=== PATIENT | male | born 2000 | race Caucasian/White ===

== ENCOUNTER 2023-07-13 17:17 | Emergency (ER) | payer BC, SELFPAY ==
[2023-07-13 17:19] VITALS: BP 146/97; BMI 32.8
--- NOTE | 2023-07-13 18:24 | ED.GENMED ---
History of Present Illness
General
Chief Complaint: Headache
Source: patient
Exam Limitations: none
Time Seen by Provider: 07/13/23 17:56
Travel History
Have you had any contact with someone who has COVID-19?: No
Do you have any symptoms of coronavirus? Fever > 100 degrees, chills, cough, shortness of breath, sore throat, loss of taste or smell, muscle aches, or headache?: No
History of Present Illness
History of Present Illness:
This is a 23 year old male that comes in with c/o Migraine. states that he has chronic migraines since he was 2 years old. State that in 2014 he started with Botox and this worked at first but is not working any more. States that he has a headache
20 days out of every month. States that he has been to [facility], [facility] and [facility]. states that [facility] wants him to go in patient to there clinic in October. States that he has taken all his migraine medication and nothing is helping. States that this
is just like his normal migraine pattern. States that his pain in ehind his eyes and all over his head. States that he gets some right sided neck pain. States that he has had nausea and vomiting. States that he also feels fozzy and gets Z lines.
Denies any fever, chills, chest pain, SOB, abd pain, diarrhea, urinary burning.
Past History
Past History
ED Past Medical History: HTN and Other (Migraines, Crohn's, Wernickie's Encephalopathy. Psoriasis)
ED Past Surgical History: None
Social History
Tobacco: Non-smoker
Alcohol: None
Drug: None
Personal: Single
Living: with family
Review of Systems
Review of Systems
All Other Systems: ROS reviewed and negative except as documented in HPI and ROS
Constitutional: Reports no symptoms; Denies fever or chills
EENT: Reports no symptoms
Respiratory: Reports no symptoms; Denies cough or trouble breathing
Cardiac: Reports no symptoms; Denies chest pain
ABD/GI: Reports nausea and vomiting; Denies abdominal pain or diarrhea
: Reports no symptoms
Musculoskeletal: Reports no symptoms
Skin: Reports no symptoms
Neurological: Reports headache and other (Feels fozzy)
Psychiatric: Reports no symptoms
Phy Exam
General Physical Exam
General Presentation: well appearing and no apparent distress
General age: appears stated age
General Skin: warm and dry
General Habitus: normal
General Mental: alert
General Hydration: appears well hydrated
ENT Exam
ENT Exam: TM's normal, pharynx normal and neck supple
Eye Exam
Eye Exam: EOMI
Cardiovascular Exam
Cardiovascular Exam: regular rate/rhythm, no edema, no murmur and normal peripheral pulses
Pulmonary Exam
Pulmonary Exam: lungs clear, no respiratory distress, no rales, chest non tender, no crackles, no rhonchi, no wheezing and no cough
Gastrointestinal Exam
Gastrointestinal Exam: normal bowel sounds, non tender, soft, no organomegaly, no pulsatile mass and non distended
Musculoskeletal Exam
Musculoskeletal Exam: full ROM and no edema
Skin Exam
Skin Exam: normal color, warm/dry, no rash and no petechia
Course
Orders/Labs/Results
Orders:
Orders
07/13/23 18:22
0.9% Sodium Chloride 500 ml [Nss] 500 ml IV BOLUS
Acetaminophen [Tylenol] 1,000 mg PO NOW STA
Dexamethasone Sod Phosphate [Decadron] 20 mg IV NOW STA
Diphenhydramine [Benadryl] 25 mg IV NOW STA
Ketorolac [Toradol] 30 mg IV NOW STA
Prochlorperazine [Compazine] 5 mg IV NOW STA
07/13/23 18:38
Complete Blood Count/With Diff Urgent
Comprehensive Metabolic Panel Urgent
Abnormal Lab Results
07/13/23
18:38
ALT 63 H U/L
(0-50)
07/13/23 18:38
07/13/23 18:38
ALT slightly elevated. Otherwise normal labs.
Vital Signs
Initial and Last Documented VS:
Initial Vital Signs
Temp Pulse Resp BP Pulse Ox
98 F 87 16 146/97 97
07/13/23 17:19 07/13/23 17:19 07/13/23 17:19 07/13/23 17:19 07/13/23 17:19
Last Documented Vital Signs
Temp Pulse Resp BP Pulse Ox
98 F 87 16 146/97 97
07/13/23 17:19 07/13/23 17:19 07/13/23 17:19 07/13/23 17:19 07/13/23 17:19
MDM/Problems Addressed
Differential Diagnosis Includes:
Chronic Migraine
MDM/Problems Addressed:
This is a 23 year old male that comes in with c/o a migraine. States that he just can't his migraine to go away. States that he has used all his Migraine medication and nothing is working. patient is to go Inpatient at [facility] in October.
Will check labs and medicate.
Back into see patient. Patient states that he is feeling better and ready to go home. Explained to patient that he can use Tylenol 1000mg every 6 hours for headache pain and alternate with Ibuprofen 600mg every 6 hours with food. Patient to return
with any concerns.
Chronic conditions affecting care:
Chronic Migraine
Acute Exacerbation and/or Progression of Chronic Illness:
Chronic migraine
*Pulse Oximetry
Patient hypoxic: no
*EKG
Interpreted by ED Provider?: NA
Rate: EKG- N/A
*Hat Band Attacher Interpretation
Rate: Hat Band Attacher- N/A
*Critical Care Note
Total Time (30-74mins, 75-104mins- exclusive of procedures): Not Applicable
ED Attending Note
-
Portions of this chart may have been created with voice recognition software.� Occasional wrong word or��sound alike� substitutions may have occurred due to the inherent limitations of voice recognition software.
Discharge Plan
Departure
Patient Disposition: Home (Routine Discharge)
Date of Disposition: 07/13/23
Time of Disposition: 20:11
Patient with high blood pressure during this ER visit?: Yes
Condition: Good
Covid-19: Not Applicable
Discharge Problem:
Migraine
Instructions: Migraines (DC), BLOOD PRESSURE
Prescriptions:
No Action
multivitamin [TAB A DAYO] Tablet
1 tab PO DAILY
clonazepam 0.5 mg Tablet
0.5 mg PO DAILY PRN (Reason: headache)
Patient Comments:
08/08/2022: last filled 07/08/22, 30 tabs for 30 days from [facility]#[id number]
Remicade
1 dose IV .Q7WEEK
prochlorperazine maleate 10 MG tablet
10 mg PO Q8HPRN PRN (Reason: headache) Qty: 20 0RF
metoprolol succinate 50 mg Tablet Extended Release 24 Hr
50 mg PO DAILY
venlafaxine [Effexor XR] 150 mg Capsule,Extended Release 24hr
300 mg PO HS
metoprolol succinate 25 mg Tablet Extended Release 24 Hr
25 mg PO HS
candesartan 8 mg Tablet
8 mg PO HS
Ubrelvy 100 mg Tablet
100 mg PO ONCE PRN (Reason: migraines)
Trudhesa 0.725 mg/pump act. (4 mg/mL) [place],Non-Aerosol
1 spray INTRANASAL ONCE
omeprazole 40 mg Capsule,Delayed Release(Dr/Ec)
40 mg PO DAILY
divalproex 250 mg tablet extended release 24 hr
250 mg PO HS
Referrals:
Alexander Pacheco MD [Family Provider] - Call in 1-3 days for appt
Activity Restrictions/Additional Instructions:
As discussed, please make sure you are drinking your 8-8oz glasses daily. Your blood work is normal. You may use Tylenol 1000mg every 6 hours for pain and Ibuprofen 600mg every 6 hours with food. So if you take Tylenol at 9am, the Ibuprofen is due
at 12 noon, and then the Tylenol can then be taken again at 3pm and ibuprofen at 6pm. Follow up with the [facility] for your headache as scheduled. IF YOU HAVE ANY OTHER CONCERNS PLEASE RETURN TO THE EMERGENCY ROOM.
Interventions
Interventions:
*Risk Screen - Suicide Last Done: 07/13/23 17:19
*Neglect/Abuse Screening Last Done: 07/13/23 17:19
*ED COVID-19 Vaccine History Last Done: 07/13/23 17:19
ED- Neurological Assessment Last Done: 07/13/23 17:42
[2023-07-13] MEDS: DECADRON 20 MG IV (18:40)
[2023-07-13] MEDS: TYLENOL 1000 MG PO (18:40)
[2023-07-13] MEDS: BENADRYL 25 MG IV (18:40)
[2023-07-13] MEDS: COMPAZINE 5 MG IV (18:40)
[2023-07-13] MEDS: NSS 500 IV (18:41)
[2023-07-13] MEDS: TORADOL 30 MG IV (18:41)
[2023-07-13 18:56] LABS: % Basophils 1.1 % (0-2); % Eosinophils 0.6 % (0-6); % Immature Granulocytes 0.2 % (0-0.5); % Lymphocytes 36.9 % (20.5-51.1); % Monocytes 6.8 % (1.7-9.3); % Neutrophils 54.4 % (42.2-75.2); Absolute Basophils 0.1 10^3/uL (0-0.2); Absolute Lymphocytes 2.3 10^3/uL (1.2-3.4); Absolute Monocytes 0.4 10^3/uL (0.1-0.6); Absolute Neutrophils 3.4 10^3/uL (1.4-6.5); Hematocrit 41.5 % (39.0-52.0); Hemoglobin 14.5 g/dL (13.0-18.0); Mean Corp Hgb Conc. 34.9 g/dL (33.0-37.0); Mean Platelet Volume 9.5 fL (7.4-10.4); Nucleated Red Blood Cells % 0 % (-); Platelet Count 318 10^3/uL (130-400); Red Cell Dist. Width 13.1 % (11.5-14.5); White Blood Cell Count 6.3 10^3/uL (4.8-10.8)
[2023-07-13 19:13] LABS: ALT (SGPT) 63 U/L (0-50); AST (SGOT) 25 U/L (17-59); Alkaline Phosphatase 51 U/L (38-126); Blood Urea Nitrogen 16 mg/dl (9-20); Carbon Dioxide 24 mmol/L (22-30); Chloride 98 mmol/L (98-107); Estimated Creatinine Clearance > 125 ml/min; Glucose 76 mg/dl (70-99); Potassium 4.3 mmol/L (3.5-5.1); Sodium 137 mmol/L (135-145); Total Bilirubin 0.7 mg/dl (0.2-1.3); Total Protein 7.9 g/dl (6.3-8.2); eGFR > 60.00
[2023-07-13 20:30] VITALS: BP 138/80
== END 2023-07-13 20:33 | disposition home or self-care (01) ==
LOC: EMR 17:17
PROVIDERS: Clinical Nurse Specialist Family Health; EMERGENCY PHYSICIAN Emergency Medicine; FAMILY PHYSICIAN Pediatrics
DX: G43.909 Migraine, unspecified, not intractable, without status migrainosus (principal); I10 Essential (primary) hypertension
CPT/HCPCS: 99284; 96374; 96375 ×3; 96361 ×2; 80053; 85025

== ENCOUNTER 2023-07-17 15:56 | Emergency (ER) | payer BC, SELFPAY ==
[2023-07-17 16:00] VITALS: BP 175/99
[2023-07-17] MEDS: TYLENOL 1000 MG PO (17:06)
[2023-07-17] MEDS: ATIVAN 0.5 MG IV (17:07)
[2023-07-17] MEDS: BENADRYL 50 MG IV (17:09)
[2023-07-17] MEDS: NSS 1000 IV (17:10)
[2023-07-17] MEDS: REGLAN 10 MG IV (17:11)
[2023-07-17] MEDS: TORADOL 30 MG IV (17:15)
[2023-07-17] MEDS: DECADRON 10 MG IV (17:21)
[2023-07-17 17:24] LABS: % Eosinophils 0.5 % (0-6); % Monocytes 8.7 % (1.7-9.3); % Neutrophils 54.8 % (42.2-75.2); Absolute Basophils 0.1 10^3/uL (0-0.2); Absolute Monocytes 0.5 10^3/uL (0.1-0.6); Absolute Neutrophils 3.1 10^3/uL (1.4-6.5); Hematocrit 45.5 % (39.0-52.0); Hemoglobin 15.7 g/dL (13.0-18.0); Mean Corp Hgb Conc. 34.5 g/dL (33.0-37.0); Mean Corpuscular Hgb 29.1 pg (27.0-31.0); Mean Corpuscular Volume 84.4 fL (80.0-94.0); Mean Platelet Volume 9.9 fL (7.4-10.4); Nucleated Red Blood Cells % 0 % (-); Platelet Count 337 10^3/uL (130-400); Red Blood Cell Count 5.39 10^6/uL (4.70-6.10); Red Cell Dist. Width 13.2 % (11.5-14.5); White Blood Cell Count 5.7 10^3/uL (4.8-10.8)
[2023-07-17 17:41] LABS: ALT (SGPT) 40 U/L (0-50); AST (SGOT) 24 U/L (17-59); Albumin 5.1 g/dl (3.5-5.0); Alkaline Phosphatase 47 U/L (38-126); Blood Urea Nitrogen 14 mg/dl (9-20); Calcium 10.4 mg/dl (8.4-10.2); Carbon Dioxide 30 mmol/L (22-30); Chloride 99 mmol/L (98-107); Glucose 85 mg/dl (70-99); Potassium 4.4 mmol/L (3.5-5.1); Sodium 139 mmol/L (135-145); Total Bilirubin 0.7 mg/dl (0.2-1.3); Total Protein 8.3 g/dl (6.3-8.2); eGFR > 60.00
[2023-07-17] MEDS: DILAUDID 0.5 MG IV (19:27)
--- NOTE | 2023-07-17 20:17 | ED.GENMED ---
History of Present Illness
General
Chief Complaint: Headache
Source: patient
Exam Limitations: none
Time Seen by Provider: 07/17/23 16:39
Nursing documentation reviewed up to this point in time: agreed with
Travel History
Have you had any contact with someone who has COVID-19?: No
Do you have any symptoms of coronavirus? Fever > 100 degrees, chills, cough, shortness of breath, sore throat, loss of taste or smell, muscle aches, or headache?: No
History of Present Illness
History of Present Illness:
23-year-old male with past medical history of migraines, psoriasis presenting to the emergency department today with concerns of recurrent headache has been here recently multiple times and does follow very closely with neurology and has multiple
follow-up scheduled in the next couple weeks. Otherwise he denies any new or changing symptoms but has had a tough to treat migraine over the past few days. Has been taking his home meds diligently.
Past History
Past History
ED Past Medical History: HTN and Other (Migraines, Crohn's, Wernickie's Encephalopathy. Psoriasis)
ED Past Surgical History: None
Social History
Tobacco: Non-smoker
Alcohol: None
Drug: None
Personal: Single
Living: with family
Review of Systems
Review of Systems
Allergies reviewed?: Yes
All Other Systems: ROS reviewed and negative except as documented in HPI and ROS
Phy Exam
Physical Exam
Physical Exam:
GENERAL: Alert , in no apparent distress
EYE: pupils equal and reactive
NECK: Supple, no significant adenopathy.
ENT: o/p clr, mmm.
CARDIAC: Regular rate and rhythm .
LUNGS: Clear breath sounds bilaterally, no acute respiratory distress, no wheezes/rales/rhonchi
ABDOMEN: Soft, without focal tenderness, no r/g, no cvat
NEUROLOGICAL: Alert and oriented, no focal neuro deficits 5 out of 5 upper and lower extremity strength normal sensation were palpated bilaterally normal finger-nose and [id number] no pronator drift
SKIN: Warm and dry, skin intact.
MUSCULOSKELETAL: No edema, well perfused.
PSYCH: Normal and appropriate interaction.
Course
Orders/Labs/Results
Orders:
Orders
07/17/23 16:49
0.9% Sodium Chloride 1000 ml [Nss] 1,000 ml IV BOLUS
Acetaminophen [Tylenol] 1,000 mg PO NOW STA
Diphenhydramine [Benadryl] 50 mg IV NOW STA
Ketorolac [Toradol] 30 mg IV NOW STA
Lorazepam [Ativan] 0.5 mg IV NOW STA
Metoclopramide [Reglan] 10 mg IV NOW STA
07/17/23 17:04
Complete Blood Count/With Diff Urgent
Comprehensive Metabolic Panel Urgent
07/17/23 17:18
Dexamethasone Sod Phosphate [Decadron] 10 mg IV NOW STA
07/17/23 19:24
HYDROmorphone [Dilaudid] 0.5 mg IV NOW STA
Abnormal Lab Results
07/17/23
17:04
Calcium 10.4 H mg/dl
(8.4-10.2)
Total Protein 8.3 H g/dl
(6.3-8.2)
Albumin 5.1 H g/dl
(3.5-5.0)
07/17/23 17:04
07/17/23 17:04
Vital Signs
Initial and Last Documented VS:
Initial Vital Signs
Temp Pulse Resp BP Pulse Ox
98.7 F 80 18 175/99 98
07/17/23 16:00 07/17/23 16:00 07/17/23 16:00 07/17/23 16:00 07/17/23 16:00
Last Documented Vital Signs
Temp Pulse Resp BP Pulse Ox
98.7 F 80 18 175/99 98
07/17/23 16:00 07/17/23 16:00 07/17/23 16:00 07/17/23 16:00 07/17/23 16:00
MDM/Problems Addressed
MDM/Problems Addressed:
23-year-old male presenting to the emergency department today with concerns of ongoing migraine. Had some relief a few days ago when he came to the ER but has recurred. Has been in close contact with his neurologist at [facility] for IV
medications. He was given a migraine cocktail here with moderate improvement of symptoms given additional dose of Dilaudid as well with further improvement. Patient will tolerate by mouth no obvious distress. Patient follow-up closely with
neurologist return precautions given.
*Critical Care Note
Total Time (30-74mins, 75-104mins- exclusive of procedures): Not Applicable
ED Attending Note
-
Portions of this chart may have been created with voice recognition software.� Occasional wrong word or��sound alike� substitutions may have occurred due to the inherent limitations of voice recognition software.
Discharge Plan
Departure
Patient Disposition: Home (Routine Discharge)
Date of Disposition: 07/17/23
Time of Disposition: 20:21
Patient with high blood pressure during this ER visit?: No
Condition: Good
Covid-19: Not Applicable
Discharge Problem:
Migraine
Instructions: Migraines (DC)
Prescriptions:
New
metoclopramide HCl [Reglan] 10 mg tablet
10 mg PO Q6H PRN (Reason: nausea and vomiting) Qty: 7 0RF
No Action
multivitamin [TAB A DAYO] Tablet
1 tab PO DAILY
clonazepam 0.5 mg Tablet
0.5 mg PO DAILY PRN (Reason: headache)
Patient Comments:
08/08/2022: last filled 07/08/22, 30 tabs for 30 days from [id number]
Remicade
1 dose IV .Q7WEEK
prochlorperazine maleate 10 MG tablet
10 mg PO Q8HPRN PRN (Reason: headache) Qty: 20 0RF
metoprolol succinate 50 mg Tablet Extended Release 24 Hr
50 mg PO DAILY
venlafaxine [Effexor XR] 150 mg Capsule,Extended Release 24hr
300 mg PO HS
metoprolol succinate 25 mg Tablet Extended Release 24 Hr
25 mg PO HS
candesartan 8 mg Tablet
8 mg PO HS
Ubrelvy 100 mg Tablet
100 mg PO ONCE PRN (Reason: migraines)
Trudhesa 0.725 mg/pump act. (4 mg/mL) [place],Non-Aerosol
1 spray INTRANASAL ONCE
omeprazole 40 mg Capsule,Delayed Release(Dr/Ec)
40 mg PO DAILY
divalproex 250 mg tablet extended release 24 hr
250 mg PO HS
Referrals:
Alexander Pacheco III, DO [Family Provider] -
Activity Restrictions/Additional Instructions:
You came to the emergency department today with concerns of migraine. Here you had improved symptoms with the medications you were given. Please feel close with your neurologist return to the emergency department any worsening, new or concerning
symptoms.
Interventions
Interventions:
*Risk Screen - Suicide Last Done: 07/17/23 16:00
*General Assessment Last Done: 07/17/23 16:00
*Neglect/Abuse Screening Last Done: 07/17/23 16:00
*ED COVID-19 Vaccine History Last Done: 07/17/23 16:57
[2023-07-17 20:31] VITALS: BP 148/91
== END 2023-07-17 20:42 | disposition home or self-care (01) ==
LOC: EMR 15:56
PROVIDERS: Physician Assistant; EMERGENCY PHYSICIAN Emergency Medicine; FAMILY PHYSICIAN Student in an Organized Health Care Education/Training Program
DX: G43.909 Migraine, unspecified, not intractable, without status migrainosus (principal)
CPT/HCPCS: 99284; 96374; 96375 ×5; 96361; 80053; 85025

== ENCOUNTER 2023-07-22 11:14 | Emergency (ER) | payer BC, SELFPAY ==
[2023-07-22 11:16] VITALS: BP 137/96
--- NOTE | 2023-07-22 12:06 | ED.GENMED ---
History of Present Illness
General
Chief Complaint: Headache
Source: patient
Exam Limitations: none
Time Seen by Provider: 07/22/23 11:39
Travel History
Have you had any contact with someone who has COVID-19?: No
Do you have any symptoms of coronavirus? Fever > 100 degrees, chills, cough, shortness of breath, sore throat, loss of taste or smell, muscle aches, or headache?: No
History of Present Illness
History of Present Illness:
23-year-old male with recurring migraine headaches. Gets these on a daily basis. Has been worse more recently. No neurologic symptoms no unusual symptoms. Describes this as a typical migraine. Is scheduled for inpatient management in mid July.
Past History
Past History
ED Past Medical History: HTN and Other (Migraines, Crohn's, Wernickie's Encephalopathy. Psoriasis)
ED Past Surgical History: None
Social History
Tobacco: Non-smoker
Alcohol: None
Drug: None
Personal: Single
Living: with family
Review of Systems
Review of Systems
All Other Systems: Not applicable
Constitutional: Reports fever
Respiratory: Reports no symptoms
Cardiac: Reports no symptoms
Phy Exam
Physical Exam
Physical Exam:
GENERAL: Alert and oriented in no apparent distress. Sitting up in the bed nontoxic
EYE: Orbits normal. Extraocular muscles intact
NECK: Supple, nontender
CARDIAC: Regular rate and rhythm without any obvious murmurs.
LUNGS: Clear breath sounds,normal
ABDOMEN: Soft, without focal tenderness or distention
NEUROLOGICAL: Alert and oriented , grossly non-focal. Speech normal. Cranial nerves II through XII intact.
SKIN: Warm and dry, no rash or lesion, no discoloration, skin intact.
MUSCULOSKELETAL: No edema,no deformity.Good color
PSYCH: Normal and appropriate interaction.
Course
Orders/Labs/Results
Orders:
Orders
07/22/23 11:59
IV Insert/Care/Rem.- Treatment PRN
0.9% Sodium Chloride 1000 ml [Nss] 1,000 ml IV BOLUS
Diphenhydramine [Benadryl] 25 mg IV NOW STA
Ketorolac [Toradol] 15 mg IV NOW STA
Prochlorperazine [Compazine] 10 mg IV NOW STA
Vital Signs
Initial and Last Documented VS:
Initial Vital Signs
Temp Pulse Resp BP Pulse Ox
98 F 81 16 137/96 98
07/22/23 11:16 07/22/23 11:16 07/22/23 11:16 07/22/23 11:16 07/22/23 11:16
Last Documented Vital Signs
Temp Pulse Resp BP Pulse Ox
98 F 95 18 140/96 97
07/22/23 11:16 07/22/23 13:53 07/22/23 13:53 07/22/23 13:53 07/22/23 13:53
MDM/Problems Addressed
Differential Diagnosis Includes:
Typical migraine for this patient he is very nontoxic appearing benign neurologic exam. No indication for radiologic testing. Symptomatic treatment follow-up. I did explain to him that we clearly would not resolve his ongoing migraine issues but
this needs to be followed up with his special. He is fully understanding of this
*Critical Care Note
Total Time (30-74mins, 75-104mins- exclusive of procedures): Not Applicable
Data Reviewed
Review of Other/Old Records Reveals: Labs, Records and Testing
Update Note
Update Note:
1330 feels much better. Discharged to follow-up...
ED Attending Note
-
Portions of this chart may have been created with voice recognition software.� Occasional wrong word or��sound alike� substitutions may have occurred due to the inherent limitations of voice recognition software.
Discharge Plan
Departure
Patient Disposition: Home (Routine Discharge)
Date of Disposition: 07/22/23
Time of Disposition: 13:31
Patient with high blood pressure during this ER visit?: Yes
Discharge Problem:
Recurring migraine headache
Instructions: Migraines (DC), BLOOD PRESSURE
Prescriptions:
No Action
multivitamin [TAB A DAYO] Tablet
1 tab PO DAILY
clonazepam 0.5 mg Tablet
0.5 mg PO DAILY PRN (Reason: headache)
Patient Comments:
08/08/2022: last filled 07/08/22, 30 tabs for 30 days from [facility]#[id number]
Remicade
1 dose IV .Q7WEEK
prochlorperazine maleate 10 MG tablet
10 mg PO Q8HPRN PRN (Reason: headache) Qty: 20 0RF
metoprolol succinate 50 mg Tablet Extended Release 24 Hr
50 mg PO DAILY
venlafaxine [Effexor XR] 150 mg Capsule,Extended Release 24hr
300 mg PO HS
metoprolol succinate 25 mg Tablet Extended Release 24 Hr
25 mg PO HS
candesartan 8 mg Tablet
8 mg PO HS
Ubrelvy 100 mg Tablet
100 mg PO ONCE PRN (Reason: migraines)
Trudhesa 0.725 mg/pump act. (4 mg/mL) [place],Non-Aerosol
1 spray INTRANASAL ONCE
omeprazole 40 mg Capsule,Delayed Release(Dr/Ec)
40 mg PO DAILY
divalproex 250 mg tablet extended release 24 hr
250 mg PO HS
metoclopramide HCl [Reglan] 10 mg tablet
10 mg PO Q6H PRN (Reason: nausea and vomiting) Qty: 7 0RF
Referrals:
Osvaldo Diaz MD [Family Provider] - Follow up in 2-3 days
Interventions
Interventions:
*Risk Screen - Suicide Last Done: 07/22/23 11:16
*General Assessment Last Done: 07/22/23 11:16
*Neglect/Abuse Screening Last Done: 07/22/23 11:16
ED- Fall Risk Assessment Last Done: 07/22/23 14:08
*ED COVID-19 Vaccine History Last Done: 07/22/23 11:42
*Nursing Disposition Last Done: 07/22/23 14:08
ED- Neurological Assessment Last Done: 07/22/23 12:23
Discharge Date and Time
Print Language: NEPALI
[2023-07-22] MEDS: BENADRYL 25 MG IV (12:18)
[2023-07-22] MEDS: COMPAZINE 10 MG IV (12:19)
[2023-07-22] MEDS: NSS 1000 IV (12:20)
[2023-07-22] MEDS: TORADOL 15 MG IV (12:20)
[2023-07-22 13:53] VITALS: BP 140/96
== END 2023-07-22 14:08 | disposition home or self-care (01) ==
LOC: EMR 11:14
PROVIDERS: EMERGENCY PHYSICIAN Emergency Medicine; FAMILY PHYSICIAN Pediatrics
DX: G43.909 Migraine, unspecified, not intractable, without status migrainosus (principal); I10 Essential (primary) hypertension
CPT/HCPCS: 99284; 96374; 96375 ×2; 96361

== ENCOUNTER 2023-07-22 23:35 | Observation (INO) | payer BC, SELFPAY ==
[2023-07-22 18:56] VITALS: BP 131/91
[2023-07-22] MEDS: ZOFRAN 4 MG IV (20:56)
[2023-07-22] MEDS: TORADOL 15 MG IV (20:56)
[2023-07-22 21:00] VITALS: BMI 32.1
[2023-07-22 21:06] LABS: % Basophils 0.9 % (0-2); % Eosinophils 0.1 % (0-6); % Immature Granulocytes 0.4 % (0-0.5); % Neutrophils 67.6 % (42.2-75.2); Absolute Basophils 0.1 10^3/uL (0-0.2); Absolute Lymphocytes 1.9 10^3/uL (1.2-3.4); Absolute Monocytes 0.6 10^3/uL (0.1-0.6); Absolute Neutrophils 5.3 10^3/uL (1.4-6.5); Hematocrit 47.5 % (39.0-52.0); Hemoglobin 16.8 g/dL (13.0-18.0); Mean Corp Hgb Conc. 35.4 g/dL (33.0-37.0); Mean Corpuscular Hgb 28.9 pg (27.0-31.0); Mean Corpuscular Volume 81.8 fL (80.0-94.0); Mean Platelet Volume 9.7 fL (7.4-10.4); Nucleated Red Blood Cells % 0 % (-); Platelet Count 387 10^3/uL (130-400); Red Blood Cell Count 5.81 10^6/uL (4.70-6.10); Red Cell Dist. Width 13.2 % (11.5-14.5); White Blood Cell Count 7.8 10^3/uL (4.8-10.8)
[2023-07-22 21:22] LABS: Blood Urea Nitrogen 16 mg/dl (9-20); Calcium 10.1 mg/dl (8.4-10.2); Carbon Dioxide 14 mmol/L (22-30); Chloride 105 mmol/L (98-107); Estimated Creatinine Clearance > 125 ml/min; Glucose 96 mg/dl (70-99); Potassium 4.5 mmol/L (3.5-5.1); Sodium 135 mmol/L (135-145); eGFR > 60.00
--- NOTE | 2023-07-22 21:40 | ED.GENMED ---
History of Present Illness
General
Chief Complaint: Male Genito-Urinary Symptoms
Time Seen by Provider: 07/22/23 20:40
Travel History
Have you had any contact with someone who has COVID-19?: No
Do you have any symptoms of coronavirus? Fever > 100 degrees, chills, cough, shortness of breath, sore throat, loss of taste or smell, muscle aches, or headache?: No
History of Present Illness
History of Present Illness:
HPI: The patient comes back today again now indicating that he has urinary retention. He was seen here earlier for migraine type of headache. He was given Toradol, Compazine, Reglan, and IV fluids earlier.
EXAM:
GENERAL: Well appearing in no distress, he appears fairly comfortable
HEENT: Moist oral mucosa
CARDIOVASCULAR: No murmurs, normal heart rate, regular rhythm, No chest wall tenderness
PULMONARY: No respiratory distress, breath sounds are clear and equal
ABDOMEN: Soft with no peritoneal signs, no tenderness, no CVA tenderness
NEUROLOGIC: Excellent strength all extremities, no coordination deficits
PSYCHIATRIC: Appropriate mental status, normal insight and judgement
EXTREMITIES: Nontender, no edema, moves all extremities equally
SKIN: No rash, no lesions
TIME OF INITIAL ENCOUNTER: 8:40 PM
NUMBER AND COMPLEXITY OF PROBLEMS ADDRESSED AT THE ENCOUNTER
� Chronic conditions affecting care: Grovers disease, Wernicke's encephalopathy, migraines
� Acute Exacerbation and/or Progression of Chronic Illness: This is an acute problem
� Differential Diagnosis includes: Medication reaction from Benadryl leading to urinary retention
AMOUNT AND/OR COMPLEXITY OF DATA TO BE REVIEWED AND ANALYZED
� I performed an independent evaluation of and my interpretation is:
EKG:
CT: CT imaging shows a mildly prominent fluid-filled appendix however overall radiologist did not feel that this is related to appendicitis
X-rays:
Laboratory Studies: CBC and renal function are normal however the bicarb is only 14.
Other:
� Review of other/old records: I reviewed the notes from earlier today
� Clinical information was obtained by an independent historian:
� Prescriptions/Medications Considered but not given:
� Further testing considered but not performed:
RISK OF COMPLICATIONS AND/OR MORBIDITY OR MORTALITY OF PATIENT MANAGEMENT
� Social determinants of health affecting care: Lives at home
� Discussion with other providers: Notify Dr. Schmidt of the dilated appendix. The patient does have some right lower quadrant tenderness on reexamination but is very mild. Hospitalist for admission at 10:50 PM, Dr. Mcgregor.
� Escalation of care including admission/observation vs risk of discharge considered: The patient had a bladder scan upon arrival that was just over 200 mL. Initially considered that the urinary retention was related to med use
such as Benadryl given earlier. The patient is also on various other meds. No clear sign of urinary retention based on CT imaging. Unclear etiology of the persistently low bicarb. He does have ketones in the urine�she was given IV fluids. CT
imaging showed some dilatation of the appendix but no clear sign of appendicitis.
Past History
Past History
ED Past Medical History: HTN and Other (Migraines, Crohn's, Wernickie's Encephalopathy. Psoriasis)
ED Past Surgical History: None
Social History
Tobacco: Non-smoker
Alcohol: None
Drug: None
Personal: Single
Living: with family
Phy Exam
Physical Exam
Physical Exam:
See HPI
Course
Orders/Labs/Results
Orders:
Orders
07/22/23 20:43
Ketorolac [Toradol] 15 mg IV NOW STA
Ondansetron Injectable [Zofran] 4 mg IV NOW STA
07/22/23 20:44
CT Abd/pel Without Iv Or Oral Urgent
Comment:
Reason For Exam: urinary retention and pain
07/22/23 20:51
Basic Metabolic Panel Urgent
Complete Blood Count/With Diff Urgent
07/22/23 21:57
Basic Metabolic Panel Urgent
Urinalysis Reflex To Culture Urgent
Date Specimen was Collected: 07/22/23
Time Specimen was Collected: 21:52
07/22/23 22:28
0.9% Sodium Chloride 1000 ml [Nss] 1,000 ml IV BOLUS
Abnormal Lab Results
07/22/23 07/22/23
20:51 21:57
Carbon Dioxide 14 L* mmol/L 14 L* mmol/L
() ()
Urine Ketones 3+ A
(Negative)
07/22/23 20:51
07/22/23 21:57
Vital Signs
Initial and Last Documented VS:
Initial Vital Signs
Temp Pulse Resp BP Pulse Ox
98.2 F 108 16 131/91 98
07/22/23 18:56 07/22/23 18:56 07/22/23 18:56 07/22/23 18:56 07/22/23 18:56
Last Documented Vital Signs
Temp Pulse Resp BP Pulse Ox
98.2 F 108 16 131/91 98
07/22/23 18:56 07/22/23 18:56 07/22/23 18:56 07/22/23 18:56 07/22/23 18:56
*Critical Care Note
Total Time (30-74mins, 75-104mins- exclusive of procedures): Not Applicable
ED Attending Note
-
Portions of this chart may have been created with voice recognition software.� Occasional wrong word or��sound alike� substitutions may have occurred due to the inherent limitations of voice recognition software.
Discharge Plan
Departure
Prescriptions:
No Action
multivitamin [TAB A DAYO] Tablet
1 tab PO DAILY
clonazepam 0.5 mg Tablet
0.5 mg PO DAILY PRN (Reason: headache)
Patient Comments:
08/08/2022: last filled 07/08/22, 30 tabs for 30 days from [id number]
Remicade
1 dose IV .Q7WEEK
prochlorperazine maleate 10 MG tablet
10 mg PO Q8HPRN PRN (Reason: headache) Qty: 20 0RF
metoprolol succinate 50 mg Tablet Extended Release 24 Hr
50 mg PO DAILY
venlafaxine [Effexor XR] 150 mg Capsule,Extended Release 24hr
300 mg PO HS
metoprolol succinate 25 mg Tablet Extended Release 24 Hr
25 mg PO HS
candesartan 8 mg Tablet
8 mg PO HS
Ubrelvy 100 mg Tablet
100 mg PO ONCE PRN (Reason: migraines)
Trudhesa 0.725 mg/pump act. (4 mg/mL) [place],Non-Aerosol
1 spray INTRANASAL ONCE
omeprazole 40 mg Capsule,Delayed Release(Dr/Ec)
40 mg PO DAILY
divalproex 250 mg tablet extended release 24 hr
250 mg PO HS
metoclopramide HCl [Reglan] 10 mg tablet
10 mg PO Q6H PRN (Reason: nausea and vomiting) Qty: 7 0RF
Referrals:
Osvaldo Diaz MD [Family Provider] -
Interventions
Interventions:
*Risk Screen - Suicide Last Done: 07/22/23 18:56
*General Assessment Last Done: 07/22/23 18:56
*Neglect/Abuse Screening Last Done: 07/22/23 18:56
ED- Fall Risk Assessment Last Done: 07/22/23 20:59
*ED COVID-19 Vaccine History Last Done: 07/22/23 18:56
ED-Male Genitourinary Assessment Last Done: 07/22/23 20:59
Discharge Date and Time
Print Language: LEBANESE
[2023-07-22 22:10] LABS: Urine Albumin Trace (Neg - Trace); Urine Bilirubin Negative (Negative); Urine Character Clear (Clear); Urine Color Yellow; Urine Glucose Negative (Negative); Urine Ketone 3+ (Negative); Urine Leukocyte Negative (Negative); Urine Nitrite Negative (Negative); Urine Occult Blood Negative (Negative); Urine Specific Gravity 1.025 (<1.030); Urine Urobilinogen Negative (Neg - 1+)
[2023-07-22 22:33] LABS: Blood Urea Nitrogen 16 mg/dl (9-20); Calcium 8.9 mg/dl (8.4-10.2); Carbon Dioxide 14 mmol/L (22-30); Chloride 107 mmol/L (98-107); Estimated Creatinine Clearance > 125 ml/min; Glucose 89 mg/dl (70-99); Potassium 3.8 mmol/L (3.5-5.1); Sodium 135 mmol/L (135-145); eGFR > 60.00
[2023-07-22] MEDS: NSS 1000 IV ×2 (22:46→23:41)
[2023-07-22 23:03] VITALS: BP 130/89
--- NOTE | 2023-07-22 23:30 | HPS.HSE ---
Family Physician
-
Family Physician: Osvaldo Diaz
Chief Complaint
-
Low bicarb
History of Present Illness
23-year-old male with past medical history of migraines, psoriasis, chron's, presents to the emergency department recurrent headache/migraine. he has been here recently multiple times and does follow very closely with neurology and has multiple
follow-up scheduled in the next couple weeks. He has had a migraine for over a week, and has been vomiting often and not eating or drinking much. In ED he was given fluids, but had difficulty urinating. Bicarg of 14 found.
Medical History
Past Medical History
Past Medical History: Reports Other
Additional Past Medical History:
essential HTN
Migraines,
Crohn's,
Wernickie's Encephalopathy.
Psoriasis
Past Surgical History: Reports None
Social History
Tobacco: Non-smoker
Alcohol: None
Drug: None
Personal: Single
Family History
Family History: Not pertinent
Allergies / Home Medications
Allergies reflects when Allergies were last updated in [employer].
Home Medications with original date entered in [employer]
Allergy/Medication List:
Allergies
Allergy/AdvReac Type Severity Reaction Status Date / Time
diphenhydramine HCl AdvReac Unknown Verified 07/22/23 11:16
[From Benadryl]
Home Medications
Remicade 1 dose IV .Q7WEEK 07/14/14
clonazepam 0.5 mg tablet 0.5 mg PO BID PRN anxiety 07/14/14
metoprolol succinate 50 mg tablet,extended release 24 hr 50 mg PO QHS 08/08/22
omeprazole 40 mg capsule,delayed release 40 mg PO QHS 08/08/22
venlafaxine 150 mg capsule,extended release 24 hr (Effexor XR) 225 mg PO HS 08/08/22
lamotrigine 25 mg tablet,extended release 24 hr 25 mg PO QHS 07/22/23
Review of Systems
-
History Source: Patient
A 12 point ROS was completed and negative except as noted: Yes
Abdomen/GI: Reports See HPI
Physical Exam
Vital Signs
Vital Signs
Temp Pulse Resp BP Pulse Ox
98 F 94 18 130/89 97
07/22/23 23:03 07/22/23 23:03 07/22/23 23:03 07/22/23 23:03 07/22/23 23:03
Physical Exam
General: Well Developed, Well Nourished, No Apparent Distress, Comfortable and Obese
HEENT: NormoCephalic, Moist mucous membranes, Nose Appears Normal and Ears Appear Normal
Respiratory: Clear
Cardiac: S1/S2 and Regular Rhythm
GI: Soft, Non Distended and Tender
Musculoskeletal: No Clubbing, No Cyanosis and No Edema
Skin: Warm and Dry; No Rash or Jaundice
Neuro: Awake, Alert, Oriented and AO x 3
Psych: Calm
Laboratory Results
-
07/22/23 20:51
07/22/23 21:57
Data Reviewed
-
Lab Data: Labs Reviewed by me
Impression/Plan
-
IMPRESSION:
23 man with h/o migraines and chrons who has been vomiting for one week comes in with bicarb of 14.
PLAN:
1. Bicarb of 14.
IV fluids
Recheck in am
2. Migraine
Analgesia as needed
Full code
VCD for DVTp
[2023-07-23 01:29] VITALS: BP 136/76
[2023-07-23 02:07] VITALS: BP 140/87; BMI 32.6
[2023-07-23] MEDS: LR 1000 IV ×4 (02:21→22:58)
[2023-07-23] MEDS: PROTONIX 40 MG PO ×2 (02:40→20:52)
[2023-07-23] MEDS: LOPRESSOR 50 MG PO (02:40)
[2023-07-23] MEDS: EFFEXOR XR 225 MG PO ×2 (02:40→20:52)
[2023-07-23] MEDS: KLONOPIN 0.5 MG PO ×2 (02:41→20:51)
[2023-07-23] MEDS: LAMICTAL 25 MG PO ×2 (02:41→20:51)
[2023-07-23 07:27] LABS: % Basophils 1.1 % (0-2); % Immature Granulocytes 0.3 % (0-0.5); % Lymphocytes 35.4 % (20.5-51.1); % Monocytes 8.8 % (1.7-9.3); % Neutrophils 53.4 % (42.2-75.2); Absolute Basophils 0.1 10^3/uL (0-0.2); Absolute Eosinophils 0.1 10^3/uL (0-0.7); Absolute Lymphocytes 2.2 10^3/uL (1.2-3.4); Absolute Monocytes 0.6 10^3/uL (0.1-0.6); Absolute Neutrophils 3.4 10^3/uL (1.4-6.5); Hematocrit 41.4 % (39.0-52.0); Hemoglobin 14.4 g/dL (13.0-18.0); Mean Corp Hgb Conc. 34.8 g/dL (33.0-37.0); Mean Corpuscular Hgb 29.2 pg (27.0-31.0); Mean Platelet Volume 9.7 fL (7.4-10.4); Nucleated Red Blood Cells % 0 % (-); Platelet Count 299 10^3/uL (130-400); Red Blood Cell Count 4.93 10^6/uL (4.70-6.10); Red Cell Dist. Width 13.2 % (11.5-14.5); White Blood Cell Count 6.3 10^3/uL (4.8-10.8)
[2023-07-23 07:30] VITALS: BP 126/82
[2023-07-23 07:54] LABS: ALT (SGPT) 18 U/L (0-50); AST (SGOT) 19 U/L (17-59); Albumin 4.2 g/dl (3.5-5.0); Alkaline Phosphatase 42 U/L (38-126); Amylase 58 U/L (30-110); Blood Urea Nitrogen 13 mg/dl (9-20); Calcium 9.3 mg/dl (8.4-10.2); Carbon Dioxide 20 mmol/L (22-30); Chloride 106 mmol/L (98-107); Estimated Creatinine Clearance > 125 ml/min; Glucose 77 mg/dl (70-99); Lipase 33 U/L (23-300); Potassium 4.7 mmol/L (3.5-5.1); Sodium 135 mmol/L (135-145); Total Protein 6.9 g/dl (6.3-8.2); eGFR > 60.00
--- NOTE | 2023-07-23 10:38 | CM ---
Spoke with pt at bedside
Pt lives in a 2 story home with his mother, step-father and brother
Working FT, drives, independent
H/O Chron's Disease - receives home infusions, followed by [facility]
DME in home - includes supplies for home infusion IV pole, pump
HH - active with [facility]
Has ride home when d/c'ed
SNF - denies past snf
PCP - Dr Osvaldo Diaz
Pharm - [facility]
CM will follow for d/c needs
Plan - anticipate home to previous setting
--- NOTE | 2023-07-23 12:37 | W.PN.HOSP.TC ---
Today's Communication/Plan
-
supportive care
toradol
adv to LRD
Assessment / Plan
Assessment / Plan
Physical Exam
General: Well Developed, Well Nourished, No Apparent Distress, Comfortable and Obese
HEENT: NormoCephalic, Moist mucous membranes, Nose Appears Normal and Ears Appear Normal
Respiratory: Clear
Cardiac: S1/S2 and Regular Rhythm
GI: Soft, Non Distended and Tender
Musculoskeletal: No Clubbing, No Cyanosis and No Edema
Skin: Warm and Dry; No Rash or Jaundice
Neuro: Awake, Alert, Oriented and AO x 3
Psych: Calm
IMPRESSION:
23 man with h/o migraines and Crohns who has been vomiting for one week comes in with bicarb of 14.
PLAN:
#Nausea/Vomiting
-2/2 to Migraine; no diarrhea or what appears to be Crohns flare
-improving today
-supportive care
-advance to LRD and monitor
-CT without evidence of acute pathology including any evidence of appendicitis
#Anion Gap Metabolic Acidosis
-most likely starvation ketoacidosis
-patient has not eaten much over the last 1.5 week
-improving with fluids
-f/u bhb
#Crohns
-on Remicade
Full code
HSQ
Anticipated Discharge: Within 24 hours
Subjective/Interval History
-
Date of Service: July 23, 2023
Patient's migraine pain improved, nausea improved as well
Objective Data
-
Labs:
Laboratory Results
07/23/23
06:55
WBC 6.3
Hgb 14.4
Hct 41.4
Plt Count 299 D
Sodium 135
Potassium 4.7
Chloride 106
Carbon Dioxide 20 L
BUN 13
Creatinine 0.8
Glucose 77
Calcium 9.3
Total Bilirubin 1.0
AST 19
ALT 18
Alkaline Phosphatase 42
Vital Signs:
Vital Signs
Temp Pulse Resp BP Pulse Ox
98.3 F 83 16 126/82 98
07/23/23 07:30 07/23/23 07:30 07/23/23 07:30 07/23/23 07:30 07/23/23 07:30
I&O
07/22/23 07/23/23 07/24/23
06:59 06:59 06:59
Intake Total 240 / 240
Output Total 50 / 50
Balance 190 / 190
Review of Systems
-
History Source: Patient
All other systems: Not reviewed unless documented
Data Reviewed
-
CT Scan: Image personally visualized and interpreted and Report Reviewed by me
Labs: Labs Reviewed by me
[2023-07-23 13:09] LABS: B-Hydroxybutyrate 3.09 mmol/L (0.02-0.27)
[2023-07-23 13:11] VITALS: BP 131/91
[2023-07-23 15:45] VITALS: BP 144/85
[2023-07-23] MEDS: TORADOL 15 MG IV (18:04)
[2023-07-23] MEDS: TOPROL XL 50 MG PO (20:52)
[2023-07-23] MEDS: COMPAZINE 5 MG IV (22:02)
[2023-07-23] MEDS: TYLENOL 1000 MG PO (22:12)
[2023-07-23 23:42] VITALS: BP 138/86
[2023-07-24 07:00] VITALS: BP 135/95
[2023-07-24 07:38] LABS: Hematocrit 39.2 % (39.0-52.0); Hemoglobin 14.1 g/dL (13.0-18.0); Mean Corpuscular Hgb 29.2 pg (27.0-31.0); Mean Corpuscular Volume 81.2 fL (80.0-94.0); Mean Platelet Volume 9.7 fL (7.4-10.4); Platelet Count 295 10^3/uL (130-400); Red Blood Cell Count 4.83 10^6/uL (4.70-6.10); Red Cell Dist. Width 13.4 % (11.5-14.5); White Blood Cell Count 4.6 10^3/uL (4.8-10.8)
[2023-07-24 08:46] LABS: Blood Urea Nitrogen 8 mg/dl (9-20); Calcium 9.5 mg/dl (8.4-10.2); Carbon Dioxide 25 mmol/L (22-30); Chloride 102 mmol/L (98-107); Estimated Creatinine Clearance > 125 ml/min; Glucose 88 mg/dl (70-99); Potassium 4.3 mmol/L (3.5-5.1); Sodium 138 mmol/L (135-145); eGFR > 60.00
[2023-07-24] MEDS: TORADOL 15 MG IV (10:10)
[2023-07-24] MEDS: LR IV (10:14)
[2023-07-24] MEDS: COMPAZINE 10 MG IV (11:30)
[2023-07-24] MEDS: TYLENOL 650 MG PO (11:30)
[2023-07-24] MEDS: MIRALAX 17 GRAMS PO (11:31)
--- NOTE | 2023-07-24 11:50 | W.PN.HOSP.TC ---
Addendum entered and electronically signed by Chris Webb MD 07/24/23 15:53:
[id number]
no neuro consult needed; curb sided and recommended Solumedrol and valproic acid but patient denied and understood migraine is chronic issue and feels comfortable going home. patient should f/u with neuro, pcp, GI outpatient
Original Note:
Today's Communication/Plan
-
patient tolerating diet, anion gap metabolic acidosis resolved
neuro consulted for migraines
Assessment / Plan
Assessment / Plan
Physical Exam
General: Well Developed, Well Nourished, No Apparent Distress, Comfortable and Obese
HEENT: NormoCephalic, Moist mucous membranes, Nose Appears Normal and Ears Appear Normal
Respiratory: Clear
Cardiac: S1/S2 and Regular Rhythm
GI: Soft, Non Distended and Tender
Musculoskeletal: No Clubbing, No Cyanosis and No Edema
Skin: Warm and Dry; No Rash or Jaundice
Neuro: Awake, Alert, Oriented and AO x 3
Psych: Calm
IMPRESSION:
23 man with h/o migraines and Crohns who has been vomiting for one week comes in with bicarb of 14.
PLAN:
#Nausea/Vomiting
-2/2 to Migraine; no diarrhea or what appears to be Crohns flare
-resolved, tolerating diet
-supportive care
-advance to LRD - tolerating diet
-Neuro consulted
-CT without evidence of acute pathology including any evidence of appendicitis
#Anion Gap Metabolic Acidosis
-most likely starvation ketoacidosis
-Elevated BHB
-patient has not eaten much over the last 1.5 week
-improving with fluids, tolerating diet
-f/u bmp outpatient
-resolved
#Crohns
-on Remicade
Full code
HSQ
More than 30 minutes spent in discharge including
Final examination of the patient
Summarizing hospital stay
Instructions for continuing care to all relevant caregivers
Preparation of discharge records, prescriptions, and referral forms
Total time spent (35 in minutes):
Anticipated Discharge: Today
Subjective/Interval History
-
Date of Service: July 24, 2023
feels better today, tolerating diet
Objective Data
-
Labs:
Laboratory Results
07/24/23
07:16
WBC 4.6 L
Hgb 14.1
Hct 39.2
Plt Count 295
Sodium 138
Potassium 4.3
Chloride 102
Carbon Dioxide 25
BUN 8 L
Creatinine 0.8
Glucose 88
Calcium 9.5
Vital Signs:
Vital Signs
Temp Pulse Resp BP Pulse Ox
97.9 F 78 18 135/95 97
07/24/23 07:00 07/24/23 07:00 07/24/23 07:00 07/24/23 07:00 07/24/23 07:00
I&O
07/23/23 07/24/23 07/25/23
06:59 06:59 06:59
Intake Total 240 / 240 720 / 720
Output Total 50 / 50
Balance 190 / 190 720 / 720
Review of Systems
-
History Source: Patient
All other systems: Not reviewed unless documented
Data Reviewed
-
CT Scan: Image personally visualized and interpreted and Report Reviewed by me
Labs: Labs Reviewed by me
--- NOTE | 2023-07-24 12:00 | W.DS.TRANS ---
DC Summary - [employer]
-
Discharge Instructions:
Discharge Diagnosis/Procedures #Nausea/Vomiting
#Migraines
#Anion gap metabolic acidosis, most likely
secondary to starvation ketoacidosis
Diet Grind all food,Low Residue
Activity As tolerated
Blood Work bmp in 5-7 days with pcp
Instructions:
Stand-Alone Forms:
Changes to Home Medications: No
Discharge Medications:
DC Medications w/original date entered in [employer]
Remicade 1 dose IV .Q7WEEK mirgaines 07/14/14
clonazepam 0.5 mg tablet 0.5 mg PO BID PRN anxiety 07/14/14
metoprolol succinate 50 mg tablet,extended release 24 hr 50 mg PO QHS Blood Pressure 08/08/22
omeprazole 40 mg capsule,delayed release 40 mg PO QHS GERD 08/08/22
venlafaxine 150 mg capsule,extended release 24 hr (Effexor XR) 225 mg PO HS Mental Health/Anxiety 08/08/22
lamotrigine 25 mg tablet,extended release 24 hr 25 mg PO QHS migraine 07/22/23
clobetasol 0.05 % topical foam 1 applic topical PRN PRN skin issue 07/24/23
dihydroergotamine (Trudhesa) 4 mg intranasal DAILYPRN PRN Migraines 07/24/23
eptinezumab-jjmr 100 mg/mL intravenous solution (Vyepti) 100 mg IV [id number] migraines 07/24/23
mometasone 0.1 % topical cream 1 applic topical PRN PRN Skin 07/24/23
onabotulinumtoxinA 100 unit solution for injection (Botox) 25 unit IM Q12W mirgaine 07/24/23
polyethylene glycol 3350 17 gram oral powder packet (HealthyLax) 17 g PO DAILY PRN Constipation #30 ea 07/24/23
ubrogepant 100 mg tablet (Ubrelvy) 100 mg PO DAILYPRN PRN Migraines 07/24/23
zavegepant 10 mg/actuation nasal spray (Zavzpret) 1 spray intranasal PRN PRN Migraine 07/24/23
zolmitriptan 5 mg nasal spray 1 spray intranasal PRN PRN Migraine 07/24/23
Home Medication Changes
na
Pending Results: No
--- NOTE | 2023-07-24 12:07 | PTCARENOTE ---
Pt notified of discharge order. States 'will not discharge until his migraine is relieved'. Compazine and tylenol provided after toradol ineffective. Afterwards pt reports migraine is 'so-so' but now he can't pee. Also reports was unable to eat
breakfast because he didn't feel good. Bladder scan done - revealed 2ml. Encouraged pt to drink water. MD and CM notified.
[2023-07-24] MEDS: DEPACON 60 MG IV (13:13)
--- NOTE | 2023-07-24 13:20 | PTCARENOTE ---
Pt called nurse in c/o 'really have to pee'. Asking for urologist. Pt had drank 240ml water and bladder scan revealed 219ml. Explained to pt that bladder is not full yet, continue drinking and try again later. Pt instructed to void in to urinal so I
can measure and will check bladder scan again. CARLY curtis offered and declined d/t pt fear of interaction with compazine.
--- NOTE | 2023-07-24 13:47 | PTCARENOTE ---
Pt voided 250ml, PVR 11ml. Pt denies burning/pain with urination, just hesitancy. Instructed pt on watchful waiting, to continue encouraged fluids and if no relief to call PCP. Reporting at this time migraine improving, will call mom to poultry picker for
discharge once valproic and solumedrol are completed.
[2023-07-24 15:00] VITALS: BP 155/93
== END 2023-07-24 17:15 | disposition home health service (06) ==
LOC: 3 WEST ACU 23:35
PROVIDERS: ADMITTING PHYSICIAN Internal Medicine; ATTENDING PHYSICIAN Internal Medicine; EMERGENCY PHYSICIAN Emergency Medicine; FAMILY PHYSICIAN Pediatrics
DX: R11.2 Nausea with vomiting, unspecified (principal); E87.20 Acidosis, unspecified; E87.29 Other acidosis; G43.909 Migraine, unspecified, not intractable, without status migrainosus; I10 Essential (primary) hypertension; K50.90 Crohn's disease, unspecified, without complications; L40.9 Psoriasis, unspecified; N20.0 Calculus of kidney; Z88.8 Allergy status to other drugs, medicaments and biological substances
CPT/HCPCS: 51798; 74176; 80048; 80053; 81003; 82010; 82150; 83690; 85025; 85027; 93005; 96361; 96374; 96375; 99285; G0378

== ENCOUNTER 2023-08-01 22:07 | Emergency (ER) | payer BC, SELFPAY ==
[2023-08-01 22:19] VITALS: BP 163/106
[2023-08-01 22:37] LABS: % Basophils 1.1 % (0-2); % Eosinophils 0.5 % (0-6); % Immature Granulocytes 0.5 % (0-0.5); % Lymphocytes 26.5 % (20.5-51.1); % Monocytes 9.9 % (1.7-9.3); % Neutrophils 61.5 % (42.2-75.2); Absolute Basophils 0.1 10^3/uL (0-0.2); Absolute Lymphocytes 2.2 10^3/uL (1.2-3.4); Absolute Monocytes 0.8 10^3/uL (0.1-0.6); Absolute Neutrophils 5.2 10^3/uL (1.4-6.5); Hematocrit 45.9 % (39.0-52.0); Hemoglobin 16.3 g/dL (13.0-18.0); Mean Corp Hgb Conc. 35.5 g/dL (33.0-37.0); Mean Corpuscular Hgb 28.9 pg (27.0-31.0); Mean Corpuscular Volume 81.4 fL (80.0-94.0); Nucleated Red Blood Cells % 0 % (-); Red Blood Cell Count 5.64 10^6/uL (4.70-6.10); Red Cell Dist. Width 13.2 % (11.5-14.5); White Blood Cell Count 8.4 10^3/uL (4.8-10.8)
[2023-08-01 22:53] LABS: Mean Platelet Volume 10.4 fL (7.4-10.4); Platelet Count 255 10^3/uL (130-400)
[2023-08-01 22:56] LABS: ALT (SGPT) 44 U/L (0-50); AST (SGOT) 32 U/L (17-59); Albumin 5.1 g/dl (3.5-5.0); Alkaline Phosphatase 48 U/L (38-126); Blood Urea Nitrogen 18 mg/dl (9-20); Calcium 9.8 mg/dl (8.4-10.2); Carbon Dioxide 24 mmol/L (22-30); Chloride 100 mmol/L (98-107); Glucose 80 mg/dl (70-99); Potassium 3.6 mmol/L (3.5-5.1); Sodium 135 mmol/L (135-145); Total Bilirubin 0.7 mg/dl (0.2-1.3); Total Protein 8.3 g/dl (6.3-8.2); eGFR > 60.00
--- NOTE | 2023-08-02 00:49 | ED.GENMED ---
History of Present Illness
General
Chief Complaint: Headache
Source: patient
Time Seen by Provider: 08/02/23 00:38
Nursing documentation reviewed up to this point in time: agreed with
Travel History
Have you had any contact with someone who has COVID-19?: No
Do you have any symptoms of coronavirus? Fever > 100 degrees, chills, cough, shortness of breath, sore throat, loss of taste or smell, muscle aches, or headache?: No
History of Present Illness
History of Present Illness:
Pleasant 23-year-old male with a history of chronic migraines that presents with worsening migraine. He states that this is not the worst migraine he is ever experienced. He is under the care of of [place] [facility] and is due for testing next
Monday. He states that for the last month he has been having daily headaches. Most the time he can deal with the pain but tonight the pain worsened. Patient states that he has had similar headaches more often than not over the last month. He
was admitted for low bicarb and intractable headache over the weekend. Denies fever, chills, nausea or vomiting.
Vital signs are stable. Patient not hypoxic
Nursing note reviewed. I agree with nursing documentation up to this point in time.
Home Meds and allergies reviewed.
NUMBER AND COMPLEXITY OF PROBLEMS ADDRESSED AT THE ENCOUNTER
� Chronic conditions affecting care: Warnicke's encephalitis, Grovers disease, headaches, migraines
� Acute Exacerbation and/or Progression of Chronic Illness: This is an acute illness
� Differential Diagnosis includes: Migraine
AMOUNT AND/OR COMPLEXITY OF DATA TO BE REVIEWED AND ANALYZED
I performed an independent evaluation of the following and my interpretation is:
EKG:
CT:
X-rays:
Ultrasound:
Laboratory Studies:
Other:
Review of other/old records: Previous discharge summary
Clinical information was obtained by an independent historian:
Prescriptions/Medications Considered but not given:
Further testing considered but not performed:
RISK OF COMPLICATIONS AND/OR MORBIDITY OR MORTALITY OF PATIENT MANAGEMENT
Social determinants of health affecting care: Good Social Support
Discussion with other providers:
Escalation of care including admission/observation vs risk of discharge considered:
CRITICAL CARE NOTE:
Total Time (exclusive of procedures):
Update:
Past History
Past History
ED Past Medical History: HTN and Other (Migraines, Crohn's, Wernickie's Encephalopathy. Psoriasis)
ED Past Surgical History: None
Social History
Tobacco: Non-smoker
Alcohol: None
Drug: None
Personal: Single
Living: with family
Phy Exam
Physical Exam
Physical Exam:
Physical Exam
Vital signs and allergy list reviewed and agreed with.
GENERAL: Alert , in minimal to no apparent distress
EYE: pupils equal, EOMI, anicteric. Patient is photosensitive
NECK: Supple, no significant adenopathy. No masses. Trachea midline
ENT: Oropharynx is clear, mmm.
CARDIAC: Regular rate and rhythm . No M/R/G
LUNGS: Clear breath sounds bilaterally, no acute respiratory distress, no wheezes/rales/rhonchi
ABDOMEN: Soft, without focal tenderness, no r/g,
NEUROLOGICAL: Alert and oriented, no focal neuro deficits
SKIN: Warm and dry, skin intact.
MUSCULOSKELETAL: No edema, well perfused. Moves all 4 extremities
PSYCH: Normal and appropriate interaction.
Course
Orders/Labs/Results
Orders:
Orders
08/01/23 22:31
CMP [Comprehensive Metabolic Panel] Urgent
Complete Blood Count/With Diff Urgent
08/02/23 00:55
0.9% Sodium Chloride 1000 ml [Nss] 1,000 ml IV BOLUS
Acetaminophen 1000MG/100Ml [Ofirmev] 1,000 mg in 100 ml IV ONCE
Acetaminophen IV Indication:: ED Narcotic Naive Pt-ONCE
Ketorolac [Toradol] 15 mg IV NOW STA
Ondansetron Injectable [Zofran] 4 mg IV NOW STA
Abnormal Lab Results
08/01/23
22:31
Absolute Monos (auto) 0.8 H 10^3/uL
(0.1-0.6)
Monocytes % 9.9 H %
(1.7-9.3)
Total Protein 8.3 H g/dl
(6.3-8.2)
Albumin 5.1 H g/dl
(3.5-5.0)
08/01/23 22:31
08/01/23 22:31
Vital Signs
Initial and Last Documented VS:
Initial Vital Signs
Temp Pulse Resp BP Pulse Ox
98.1 F 102 19 163/106 98
08/01/23 22:19 08/01/23 22:19 08/01/23 22:19 08/01/23 22:19 08/01/23 22:19
Last Documented Vital Signs
Temp Pulse Resp BP Pulse Ox
98.1 F 74 20 146/96 99
08/01/23 22:19 08/02/23 04:10 08/02/23 04:10 08/02/23 04:10 08/02/23 04:10
*Critical Care Note
Total Time (30-74mins, 75-104mins- exclusive of procedures): Not Applicable
Update Note
Update Note:
08/02/2023 0357 AM patient is feeling only marginally better. He does not have any suggestions as to what might work for this chronic headache. He is dialed in with neurology at [place] and has
ED Attending Note
-
Portions of this chart may have been created with voice recognition software.� Occasional wrong word or��sound alike� substitutions may have occurred due to the inherent limitations of voice recognition software.
Discharge Plan
Departure
Patient Disposition: Home (Routine Discharge)
Date of Disposition: 08/02/23
Time of Disposition: 04:00
Patient with high blood pressure during this ER visit?: Yes
Condition: Good
Discharge Problem:
Migraine
Instructions: Migraines (DC), Headache, Adult (DC), BLOOD PRESSURE
Prescriptions:
No Action
clonazepam 0.5 mg Tablet
0.5 mg PO BID PRN (Reason: anxiety)
Patient Comments:
08/08/2022: last filled 07/08/22, 30 tabs for 30 days from [facility][id number]
Remicade
1 dose IV .Q7WEEK
metoprolol succinate 50 mg Tablet Extended Release 24 Hr
50 mg PO QHS
venlafaxine [Effexor XR] 150 mg Capsule,Extended Release 24hr
225 mg PO HS
omeprazole 40 mg Capsule,Delayed Release(Dr/Ec)
40 mg PO QHS
lamotrigine 25 mg Tablet Extended Release 24hr
25 mg PO QHS
Trudhesa 0.725 mg/pump act. (4 mg/mL) spray,non-aerosol
4 mg INTRANASAL DAILYPRN PRN (Reason: Migraines)
clobetasol 0.05 % foam
1 applic TOPICAL PRN PRN (Reason: skin issue)
mometasone 0.1 % cream
1 applic TOPICAL PRN PRN (Reason: Skin )
zolmitriptan 5 mg spray,non-aerosol
1 spray INTRANASAL PRN PRN (Reason: Migraine)
Ubrelvy 100 mg tablet
100 mg PO DAILYPRN PRN (Reason: Migraines)
Zavzpret 10 mg/actuation spray,non-aerosol
1 spray INTRANASAL PRN PRN (Reason: Migraine)
Vyepti 100 mg/mL Solution
100 mg IV [id number]
Botox 100 unit Recon Soln
25 unit IM Q12W
Rx Instructions:
Patient gets botox injections every 12 weeks
polyethylene glycol 3350 [HealthyLax] 17 gram Powder In Packet
17 g PO DAILY PRN (Reason: Constipation) Qty: 30 0RF
Referrals:
Anurag Osborne MD [Active] -
UNKNOWN - PT NOT,INTERVIEWE [Unknown Provider] -
Activity Restrictions/Additional Instructions:
It was a pleasure meeting you and taking part in your care. We hope for your continued healing and wellness.
Please read discharge instructions in their entirety. However, they are for general education and may not describe your exact diagnosis at discharge. Information on your ER visit and medical conditions were discussed with you along with appropriate
follow up information...
If indicated, please take your medications as instructed and indicated on discharge paperwork.
Please schedule a follow up appointment as directed. Call to schedule an appointment
Please return to the emergency department with ANY change in, persisting, or worsening of symptoms. If any of your symptoms do not improve, or persist, or become more severe within 6-12 hours, please return to the emergency department for further
care.
Please return to the emergency department if you develop a headache, neck pain/stiffness, fever greater than 100.4F, chest pain, shortness of breath, persistent nausea, vomiting, slurred speech, difficulty walking, numbness/tingling, weakness, signs
of infection or any other symptoms that are worrisome to you.
If you have any questions or concerns please do not hesitate to call the Hospital at or E-mail me directly at [email or web address]
Interventions
Interventions:
*Risk Screen - Suicide Last Done: 08/01/23 22:19
*General Assessment Last Done: 08/01/23 22:19
*Neglect/Abuse Screening Last Done: 08/01/23 22:19
ED- Fall Risk Assessment Last Done: 08/02/23 02:32
*ED COVID-19 Vaccine History Last Done: 08/01/23 22:19
*Nursing Disposition Last Done: 08/02/23 04:10
ED- Neurological Assessment Last Done: 08/02/23 02:32
Discharge Date and Time
Discharge Date/Time: 08/02/23 04:18
Print Language: KAZAKH
[2023-08-02] MEDS: NSS 1000 IV (01:22)
[2023-08-02] MEDS: ZOFRAN 4 MG IV (01:24)
[2023-08-02] MEDS: TORADOL 15 MG IV (01:24)
[2023-08-02] MEDS: OFIRMEV 100 IV (01:24)
[2023-08-02 04:10] VITALS: BP 146/96
== END 2023-08-02 04:18 | disposition home or self-care (01) ==
LOC: EMR 22:07
PROVIDERS: EMERGENCY PHYSICIAN Student in an Organized Health Care Education/Training Program
DX: G43.909 Migraine, unspecified, not intractable, without status migrainosus (principal); I10 Essential (primary) hypertension; K50.90 Crohn's disease, unspecified, without complications
CPT/HCPCS: 99283; 96365; 96375; 80053; 85025

== ENCOUNTER 2023-11-14 15:40 | Emergency (ER) | payer BC, SELFPAY ==
[2023-11-14 15:44] VITALS: BP 128/91
--- NOTE | 2023-11-14 18:26 | ED.GENMED ---
History of Present Illness
General
Chief Complaint: Headache
Source: patient
Exam Limitations: none
Time Seen by Provider: 11/14/23 17:56
History of Present Illness
History of Present Illness:
This is a 23 year old male that comes in with c/o headache. States that he has a headache daily. States that this migraine started about 1-1.5 months ago. States that he can't work that he has pain every day. States that his pain is on the top of
his head and behind his eyes. States that he also has an ora and has Squiggly lines. States that he is nauseated, vomiting and feel lightheaded. Denies any fever, chills, chest pain, SOB, abd pain, diarrhea, urinary burning.
Past History
Past History
ED Past Medical History: HTN and Other (Migraines, Crohn's, Wernickie's Encephalopathy. Psoriasis)
ED Past Surgical History: None
Social History
Tobacco: Non-smoker
Alcohol: None
Drug: None
Personal: Single
Living: with family
Review of Systems
Review of Systems
All Other Systems: ROS reviewed and negative except as documented in HPI and ROS
Constitutional: Reports no symptoms; Denies fever or chills
EENT: Reports no symptoms
Respiratory: Reports no symptoms; Denies cough or trouble breathing
Cardiac: Reports no symptoms; Denies chest pain
ABD/GI: Reports nausea and vomiting; Denies abdominal pain or diarrhea
: Reports no symptoms; Denies dysuria, frequency or urgency
Musculoskeletal: Reports no symptoms
Skin: Reports no symptoms
Neurological: Reports headache and other (Lightheaded); Denies dizzy
Psychiatric: Reports no symptoms
Phy Exam
General Physical Exam
General Presentation: well appearing and no apparent distress
General age: appears stated age
General Skin: warm and dry
General Habitus: normal
General Mental: alert
General Hydration: appears well hydrated
ENT Exam
ENT Exam: TM's normal, pharynx normal and neck supple
Eye Exam
Eye Exam: EOMI
Cardiovascular Exam
Cardiovascular Exam: regular rate/rhythm, no edema, no murmur and normal peripheral pulses
Pulmonary Exam
Pulmonary Exam: lungs clear, no respiratory distress, no rales, chest non tender, no crackles, no rhonchi, no wheezing and no cough
Gastrointestinal Exam
Gastrointestinal Exam: normal bowel sounds, non tender, soft, no organomegaly, no pulsatile mass and non distended
Musculoskeletal Exam
Musculoskeletal Exam: full ROM and no edema
Skin Exam
Skin Exam: normal color, warm/dry, no rash and no petechia
Psychiatric Exam
Psychiatric Exam: normal mood/affect
Course
Orders/Labs/Results
Orders:
Orders
11/14/23 18:25
0.9% Sodium Chloride 1000 ml [Nss] 1,000 ml IV BOLUS
Acetaminophen [Tylenol] 1,000 mg PO NOW STA
Diphenhydramine [Benadryl] 25 mg IV NOW STA
Ketorolac [Toradol] 30 mg IV NOW STA
Prochlorperazine [Compazine] 5 mg IV NOW STA
11/14/23 18:31
Dexamethasone Sod Phosphate [Decadron] 20 mg 0.9% Sodium Chloride 50 ml [Nss] 50 ml IV NOW
11/14/23 18:41
Dexamethasone Sod Phosphate [Decadron] 20 mg .ROUTE .STK-MED ONE
11/14/23 18:59
Complete Blood Count/With Diff Urgent
Comprehensive Metabolic Panel Urgent
Abnormal Lab Results
11/14/23
18:59
Carbon Dioxide 20 L mmol/L
(22-30)
Albumin 5.1 H g/dl
(3.5-5.0)
11/14/23 18:59
11/14/23 18:59
Carbon dioxide sightly low. Otherwise normal labs.
Vital Signs
Initial and Last Documented VS:
Initial Vital Signs
Temp Pulse Resp BP Pulse Ox
98.6 F 84 18 128/91 96
11/14/23 15:44 11/14/23 15:44 11/14/23 15:44 11/14/23 15:44 11/14/23 15:44
Last Documented Vital Signs
Temp Pulse Resp BP Pulse Ox
98.4 F 74 18 143/91 96
11/14/23 19:01 11/14/23 19:01 11/14/23 15:44 11/14/23 19:01 11/14/23 19:01
MDM/Problems Addressed
Differential Diagnosis Includes:
Chronic Migraines
MDM/Problems Addressed:
This is a 23 year old male that comes in with c/o Migraine. States that he has a headache daily but this migraines has been for 1-1.5 months. Patient waiting to get into [facility].
Will get labs, IV fluids and medicate for headache pain.
Back into see patient. States that he is feeling better. Patient to follow up with the Neurologist. Will discharge home.
Chronic conditions affecting care:
Chronic migraines
Acute Exacerbation and/or Progression of Chronic Illness:
Chronic Migraines
*Pulse Oximetry
Patient hypoxic: no
*EKG
Interpreted by ED Provider?: NA
Rate: EKG- N/A
*Business Affairs Manager Interpretation
Rate: Business Affairs Manager- N/A
*Critical Care Note
Total Time (30-74mins, 75-104mins- exclusive of procedures): Not Applicable
ED Attending Note
-
Portions of this chart may have been created with voice recognition software.� Occasional wrong word or��sound alike� substitutions may have occurred due to the inherent limitations of voice recognition software.
Discharge Plan
Departure
Patient Disposition: Home (Routine Discharge)
Date of Disposition: 11/14/23
Time of Disposition: 20:01
Patient with high blood pressure during this ER visit?: Yes
Condition: Good
Covid-19: Not Applicable
Discharge Problem:
Chronic migraine with aura
Instructions: Migraines (DC), BLOOD PRESSURE
Prescriptions:
No Action
clonazepam 0.5 mg Tablet
0.5 mg PO BID PRN (Reason: anxiety)
Patient Comments:
08/08/2022: last filled 07/08/22, 30 tabs for 30 days from [id number]
Remicade
1 dose IV .Q7WEEK
metoprolol succinate 50 mg Tablet Extended Release 24 Hr
50 mg PO QHS
venlafaxine [Effexor XR] 150 mg Capsule,Extended Release 24hr
225 mg PO HS
omeprazole 40 mg Capsule,Delayed Release(Dr/Ec)
40 mg PO QHS
lamotrigine 25 mg Tablet Extended Release 24hr
25 mg PO QHS
Trudhesa 0.725 mg/pump act. (4 mg/mL) spray,non-aerosol
4 mg INTRANASAL DAILYPRN PRN (Reason: Migraines)
clobetasol 0.05 % foam
1 applic TOPICAL PRN PRN (Reason: skin issue)
mometasone 0.1 % cream
1 applic TOPICAL PRN PRN (Reason: Skin )
zolmitriptan 5 mg spray,non-aerosol
1 spray INTRANASAL PRN PRN (Reason: Migraine)
Ubrelvy 100 mg tablet
100 mg PO DAILYPRN PRN (Reason: Migraines)
Zavzpret 10 mg/actuation spray,non-aerosol
1 spray INTRANASAL PRN PRN (Reason: Migraine)
Vyepti 100 mg/mL Solution
100 mg IV [id number]
Botox 100 unit Recon Soln
25 unit IM Q12W
Rx Instructions:
Patient gets botox injections every 12 weeks
polyethylene glycol 3350 [HealthyLax] 17 gram Powder In Packet
17 g PO DAILY PRN (Reason: Constipation) Qty: 30 0RF
Referrals:
Alma Patton DO [Family Provider] -
Activity Restrictions/Additional Instructions:
As discussed, your blood work is normal. Please increase your water intake to 8-8oz glasses daily. Follow up with the Neurologist for further evaluation. You may use Tylenol 1000mg every 6 hours for pain and Ibuprofen 600mg every 6 hour with food.
Or just use the medication that you had been prescribed by your Neurologist. IF YOU HAVE ANY OTHER CONCERNS PLEASE RETURN TO THE EMERGENCY ROOM
Discharge Date and Time
Print Language: IRAQI
[2023-11-14] MEDS: NSS 1000 IV (18:55)
[2023-11-14] MEDS: BENADRYL 25 MG IV (18:56)
[2023-11-14] MEDS: TORADOL 30 MG IV (18:56)
[2023-11-14] MEDS: TYLENOL 1000 MG PO (18:57)
[2023-11-14 19:01] VITALS: BP 143/91
[2023-11-14 19:08] LABS: % Basophils 0.8 % (0-2); % Eosinophils 0.2 % (0-6); % Immature Granulocytes 0.4 % (0-0.5); % Lymphocytes 24.3 % (20.5-51.1); % Monocytes 6.3 % (1.7-9.3); Absolute Basophils 0.1 10^3/uL (0-0.2); Absolute Monocytes 0.5 10^3/uL (0.1-0.6); Absolute Neutrophils 5.7 10^3/uL (1.4-6.5); Hematocrit 42.9 % (39.0-52.0); Hemoglobin 15.5 g/dL (13.0-18.0); Mean Corp Hgb Conc. 36.1 g/dL (33.0-37.0); Mean Corpuscular Hgb 29.7 pg (27.0-31.0); Mean Corpuscular Volume 82.2 fL (80.0-94.0); Mean Platelet Volume 9.1 fL (7.4-10.4); Nucleated Red Blood Cells % 0 % (-); Platelet Count 352 10^3/uL (130-400); Red Blood Cell Count 5.22 10^6/uL (4.70-6.10); Red Cell Dist. Width 13.2 % (11.5-14.5); White Blood Cell Count 8.3 10^3/uL (4.8-10.8)
[2023-11-14] MEDS: DECADRON 55 MG IV (19:29)
[2023-11-14 19:40] LABS: ALT (SGPT) 15 U/L (0-50); AST (SGOT) 19 U/L (17-59); Albumin 5.1 g/dl (3.5-5.0); Alkaline Phosphatase 52 U/L (38-126); Blood Urea Nitrogen 14 mg/dl (9-20); Calcium 9.9 mg/dl (8.4-10.2); Carbon Dioxide 20 mmol/L (22-30); Chloride 101 mmol/L (98-107); Glucose 83 mg/dl (70-99); Potassium 4.4 mmol/L (3.5-5.1); Sodium 136 mmol/L (135-145); Total Bilirubin 0.8 mg/dl (0.2-1.3); eGFR > 60.00
[2023-11-14 20:54] VITALS: BP 131/84
== END 2023-11-14 20:56 | disposition home or self-care (01) ==
LOC: EMR 15:40
PROVIDERS: Clinical Nurse Specialist Family Health; EMERGENCY PHYSICIAN Emergency Medicine; FAMILY PHYSICIAN Family Medicine
DX: G43.E09 Chronic migraine with aura, not intractable, without status migrainosus (principal); I10 Essential (primary) hypertension
CPT/HCPCS: 99284; 96365; 96375 ×4; 80053; 85025

== ENCOUNTER 2024-05-25 03:24 | Observation (INO) | payer BC, SELFPAY ==
[2024-05-24 17:32] VITALS: BP 179/96
--- NOTE | 2024-05-24 17:41 | ED.GENMED ---
ED Provider Triage
<Dolores Davis PA-C - Last Filed: 05/24/24 17:42>
-
Patient seen by provider in Triage?: Seen in Triage
Attestation: A medical screening examination has been initiated by a qualified medical provider. Based on the assessment performed at this time, it has been determined that an emergent medical condition may exist and the patient has been informed
that further medical evaluation and possible additional diagnostic testing may be needed.
HPI: 24yoM here with multiple complaints. Feels like heart is beating out of his chest with chest discomfort. Also c/o headache, facial numbness, and vomited blood 3x.
GENERAL: Alert , in no apparent distress
EYE: No visual abnormalities.
NECK: Trachea midline
ENT: No visible abnormalities.
LUNGS: No acute respiratory distress
NEUROLOGICAL: Alert and oriented
SKIN: Skin intact. No visible changes.
MUSCULOSKELETAL: Moving extremities normally
PSYCH: Normal and appropriate interaction.
This is a medical evaluation conducted in person to initiate diagnostic evaluation and provide initial therapeutics. Please see further documentation by the treating clinician.
EKG shows sinus tachycardia. Check cardiac labs, magnesium, TSH, CXR, and CT head ordered.
History of Present Illness
<Dolores Davis PA-C - Last Filed: 05/24/24 17:42>
General
Chief Complaint: Headache
Time Seen by Provider: 05/24/24 23:13
<ALEJANDRO Kang - Last Filed: 05/25/24 01:31>
General
Source: patient
Exam Limitations: none
History of Present Illness
History of Present Illness:
This is a 24 year old male that comes in with c/o headache. States that he has had a headache for a week. States that his pain is a 1000/10. States that it is all over his head. States that he also has had tremors and they did call his Neurologist,
Patient had an MRI and this was normal. States that he feels like his left sided is weaker. States that he has had chest pain, SOB, vomiting 3-4 times today, diarrhea. States that the left sided of his face feels numb and that he feels like he is
not in his body. Mom states that he was given a steroid which he took yesterday but not today. Denies any fever, chills, abd pain, dizziness, urinary burning.
Past History
<Dloores Davis PA-C - Last Filed: 05/24/24 17:42>
Past History
ED Past Medical History: HTN and Other (Migraines, Crohn's, Wernickie's Encephalopathy. Psoriasis)
ED Past Surgical History: None
Social History
Tobacco: Non-smoker
Alcohol: None
Drug: None
Personal: Single
Living: with family
<ALEJANDRO Kang - Last Filed: 05/25/24 01:31>
Past History
ED Past Medical History: Other (Migraines, Crohn's, Wernickie's Encephalopathy. Psoriasis, Tremors)
ED Past Surgical History: Urological (Hydrocele surgery)
Review of Systems
<ALEJANDRO Kang - Last Filed: 05/25/24 01:31>
Review of Systems
All Other Systems: ROS reviewed and negative except as documented in HPI and ROS
Constitutional: Reports no symptoms; Denies fever or chills
EENT: Reports no symptoms
Respiratory: Reports trouble breathing; Denies cough
Cardiac: Reports chest pain
ABD/GI: Reports nausea, vomiting and diarrhea; Denies abdominal pain
: Reports no symptoms; Denies dysuria, frequency or urgency
Musculoskeletal: Reports no symptoms
Skin: Reports no symptoms
Neurological: Reports headache and numbness (Left sided of face); Denies dizzy
Psychiatric: Reports no symptoms
Phy Exam
<ALEJANDRO Kang - Last Filed: 05/25/24 01:31>
General Physical Exam
General Presentation: mild distress
General age: appears stated age
General Skin: warm and dry
General Habitus: normal
General Mental: alert
General Hydration: appears well hydrated
ENT Exam
ENT Exam: TM's normal, pharynx normal and neck supple
Eye Exam
Eye Exam: EOMI
Cardiovascular Exam
Cardiovascular Exam: regular rate/rhythm, no edema, no murmur and normal peripheral pulses
Pulmonary Exam
Pulmonary Exam: lungs clear, no respiratory distress, no rales, chest non tender, no crackles, no rhonchi, no wheezing and no cough
Gastrointestinal Exam
Gastrointestinal Exam: normal bowel sounds, non tender, soft, no organomegaly, no pulsatile mass and non distended
Musculoskeletal Exam
Musculoskeletal Exam: full ROM and no edema
Skin Exam
Skin Exam: normal color, warm/dry, no rash and no petechia
Psychiatric Exam
Psychiatric Exam: normal mood/affect
Course
Torielt;Dolores Davis PA-C - Last Filed: 05/24/24 17:42>
Orders/Labs/Results
Orders:
Orders
05/24/24 16:59
Electrocardiogram (*1) Urgent
Reason for Study: Chest Pain
EKG- Treatment ONCE
05/24/24 17:40
CT Head W/o Iv Contrast Urgent
Comment:
Reason For Exam: GAITAN, facial numbness
CR Chest - 2 Views Urgent
Comment:
Reason For Exam: CP
05/24/24 17:47
Complete Blood Count/With Diff Urgent
Comprehensive Metabolic Panel Urgent
Lipase Urgent
Magnesium Urgent
TSH Reflex To Free T4 Urgent
Troponin I Urgent
05/24/24 23:30
Acetaminophen 1000MG/100Ml [Ofirmev] 1,000 mg in 100 ml IV ONCE
Acetaminophen IV Indication:: ED Narcotic Naive Pt-ONCE
Dexamethasone Sod Phosphate [Decadron] 20 mg IV NOW STA
Diphenhydramine [Benadryl] 25 mg IV NOW STA
Ketorolac [Toradol] 30 mg IV NOW STA
Ondansetron Injectable [Zofran] 4 mg IV NOW STA
05/24/24 23:31
0.9% Sodium Chloride 500 ml [Nss] 500 ml IV BOLUS
Abnormal Lab Results
05/24/24
17:47
Absolute Lymphs (auto) 0.7 L 10^3/uL
(1.2-3.4)
Neutrophils % 85.9 H %
(42.2-75.2)
Lymphocytes % 12.5 L %
(20.5-51.1)
Monocytes % 1.0 L %
(1.7-9.3)
Carbon Dioxide 19 L mmol/L
(22-30)
Glucose 122 H mg/dl
(70-99)
Magnesium 2.7 H mg/dl
(1.6-2.3)
ALT 74 H U/L
(0-50)
Total Protein 10.0 H g/dl
(6.3-8.2)
Albumin > 6.0 H g/dl
(3.5-5.0)
05/24/24 17:47
05/24/24 17:47
Vital Signs
Initial and Last Documented VS:
Initial Vital Signs
Temp Pulse Resp BP Pulse Ox
98.7 F 120 20 179/96 96
05/24/24 17:32 05/24/24 17:32 05/24/24 17:32 05/24/24 17:32 05/24/24 17:32
Last Documented Vital Signs
Temp Pulse Resp BP Pulse Ox
98.7 F 120 20 153/107 98
05/24/24 17:32 05/24/24 17:32 05/24/24 17:32 05/24/24 23:50 05/24/24 23:51
<ALEJANDRO Kang - Last Filed: 05/25/24 01:31>
Orders/Labs/Results
Orders:
Orders
05/24/24 16:59
Electrocardiogram (*1) Urgent
Reason for Study: Chest Pain
EKG- Treatment ONCE
05/24/24 17:40
CT Head W/o Iv Contrast Urgent
Comment:
Reason For Exam: GAITAN, facial numbness
CR Chest - 2 Views Urgent
Comment:
Reason For Exam: CP
05/24/24 17:47
Complete Blood Count/With Diff Urgent
Comprehensive Metabolic Panel Urgent
Lipase Urgent
Magnesium Urgent
TSH Reflex To Free T4 Urgent
Troponin I Urgent
05/24/24 23:30
Acetaminophen 1000MG/100Ml [Ofirmev] 1,000 mg in 100 ml IV ONCE
Acetaminophen IV Indication:: ED Narcotic Naive Pt-ONCE
Dexamethasone Sod Phosphate [Decadron] 20 mg IV NOW STA
Diphenhydramine [Benadryl] 25 mg IV NOW STA
Ketorolac [Toradol] 30 mg IV NOW STA
Ondansetron Injectable [Zofran] 4 mg IV NOW STA
05/24/24 23:31
0.9% Sodium Chloride 500 ml [Nss] 500 ml IV BOLUS
Abnormal Lab Results
05/24/24
17:47
Absolute Lymphs (auto) 0.7 L 10^3/uL
(1.2-3.4)
Neutrophils % 85.9 H %
(42.2-75.2)
Lymphocytes % 12.5 L %
(20.5-51.1)
Monocytes % 1.0 L %
(1.7-9.3)
Carbon Dioxide 19 L mmol/L
(22-30)
Glucose 122 H mg/dl
(70-99)
Magnesium 2.7 H mg/dl
(1.6-2.3)
ALT 74 H U/L
(0-50)
Total Protein 10.0 H g/dl
(6.3-8.2)
Albumin > 6.0 H g/dl
(3.5-5.0)
05/24/24 17:47
05/24/24 17:47
Carbon dioxide low, hyperglycemia. Magnesium elevation. ALT elevation. Total protein elevated. Albumin Elevated. Troponin <0.012, Lipase normal at 33, TSH low normal 0.51,
Vital Signs
Initial and Last Documented VS:
Initial Vital Signs
Temp Pulse Resp BP Pulse Ox
98.7 F 120 20 179/96 96
05/24/24 17:32 05/24/24 17:32 05/24/24 17:32 05/24/24 17:32 05/24/24 17:32
Last Documented Vital Signs
Temp Pulse Resp BP Pulse Ox
98.7 F 120 20 153/107 98
05/24/24 17:32 05/24/24 17:32 05/24/24 17:32 05/24/24 23:50 05/24/24 23:51
<ALEJANDRO Kang - Last Filed: 05/25/24 01:31>
MDM/Problems Addressed
Differential Diagnosis Includes:
Migraines, Wernicke's Encephalopathy
MDM/Problems Addressed:
This is a 24 year old male that comes in with c/o migraine. States that this has been going on for a week. States that he called his Neurologist and he had an MRI which was normal.
CT of head and chest X-ray, labs all done at Triage. Will give IV fluids and medicate for pain.
Back into see patient. States that he may feel a little better but if he went home he would come right back. Will admit with Complicated Migraine. Hospitalist notified.
Chronic conditions affecting care:
Migraines, Wernicke's encephalopathy
Acute Exacerbation and/or Progression of Chronic Illness:
Migraines
<ALEJANDRO Kang - Last Filed: 05/25/24 01:31>
*Radiology
Radiology exam reviewed: radiology read reviewed (CT head-NO evidence of acute intracranial abnormality. Chest-No evidence of active cardiopulmonary disease. )
*Pulse Oximetry
Patient hypoxic: no
*EKG
Interpreted by ED Provider?: Yes
Heart Rate: 109
Rate: tachycardiac
Rhythm: sinus tachycardia
[place]: normal axis
Interval: normal interval
QRS Pattern: normal QRS
Ischemia: no ischemia
*Manager Heavy Equipment Interpretation
Rate: Manager Heavy [employer]- N/A
*Critical Care Note
Total Time (30-74mins, 75-104mins- exclusive of procedures): Not Applicable
ED Attending Note
<Dolores Davis PA-C - Last Filed: 05/24/24 17:42>
-
Portions of this chart may have been created with voice recognition software.� Occasional wrong word or��sound alike� substitutions may have occurred due to the inherent limitations of voice recognition software.
Discharge Plan
Departure
Patient Disposition: Admit
Date of Disposition: 05/25/24
Time of Disposition: 01:30
Admit to: Med/Surg
Presentation/result/management discussed w/ accepting MD/DO: Hospitalist
Patient with high blood pressure during this ER visit?: Yes
Condition: Good
Covid-19: Not Applicable
Discharge Problem:
Complicated migraine, intractable
Prescriptions:
No Action
clonazepam 0.5 mg Tablet
0.5 mg PO BID PRN (Reason: anxiety)
Patient Comments:
08/08/2022: last filled 07/08/22, 30 tabs for 30 days from [id number]
Remicade
1 dose IV .Q7WEEK
metoprolol succinate 50 mg Tablet Extended Release 24 Hr
50 mg PO QHS
venlafaxine [Effexor XR] 150 mg Capsule,Extended Release 24hr
225 mg PO HS
omeprazole 40 mg Capsule,Delayed Release(Dr/Ec)
40 mg PO QHS
lamotrigine 25 mg Tablet Extended Release 24hr
25 mg PO QHS
Trudhesa 0.725 mg/pump act. (4 mg/mL) spray,non-aerosol
4 mg INTRANASAL DAILYPRN PRN (Reason: Migraines)
clobetasol 0.05 % foam
1 applic TOPICAL PRN PRN (Reason: skin issue)
mometasone 0.1 % cream
1 applic TOPICAL PRN PRN (Reason: Skin )
zolmitriptan 5 mg spray,non-aerosol
1 spray INTRANASAL PRN PRN (Reason: Migraine)
Ubrelvy 100 mg tablet
100 mg PO DAILYPRN PRN (Reason: Migraines)
Zavzpret 10 mg/actuation spray,non-aerosol
1 spray INTRANASAL PRN PRN (Reason: Migraine)
Vyepti 100 mg/mL Solution
100 mg IV [id number]
Botox 100 unit Recon Soln
25 unit IM Q12W
Rx Instructions:
Patient gets botox injections every 12 weeks
polyethylene glycol 3350 [HealthyLax] 17 gram Powder In Packet
17 g PO DAILY PRN (Reason: Constipation) Qty: 30 0RF
Referrals:
Alma Patton DO [Family Provider] -
Interventions
Interventions:
*Risk Screen - Suicide Last Done: 05/24/24 17:32
*General Assessment Last Done: 05/24/24 17:32
*Neglect/Abuse Screening Last Done: 05/24/24 17:32
Discharge Date and Time
Print Language: MONGOLIAN
[2024-05-24 18:01] LABS: % Basophils 0.2 % (0-2); % Immature Granulocytes 0.4 % (0-0.5); % Lymphocytes 12.5 % (20.5-51.1); % Neutrophils 85.9 % (42.2-75.2); Absolute Lymphocytes 0.7 10^3/uL (1.2-3.4); Absolute Monocytes 0.1 10^3/uL (0.1-0.6); Absolute Neutrophils 4.5 10^3/uL (1.4-6.5); Hematocrit 49.8 % (39.0-52.0); Mean Corp Hgb Conc. 34.1 g/dL (33.0-37.0); Mean Corpuscular Hgb 28.1 pg (27.0-31.0); Mean Corpuscular Volume 82.2 fL (80.0-94.0); Mean Platelet Volume 9.9 fL (7.4-10.4); Nucleated Red Blood Cells % 0 % (-); Platelet Count 368 10^3/uL (130-400); Red Blood Cell Count 6.06 10^6/uL (4.70-6.10); Red Cell Dist. Width 14.5 % (11.5-14.5); White Blood Cell Count 5.2 10^3/uL (4.8-10.8)
[2024-05-24 18:11] LABS: ALT (SGPT) 74 U/L (0-50); AST (SGOT) 53 U/L (17-59); Albumin > 6.0 g/dl (3.5-5.0); Alkaline Phosphatase 62 U/L (38-126); Blood Urea Nitrogen 11 mg/dl (9-20); Carbon Dioxide 19 mmol/L (22-30); Chloride 100 mmol/L (98-107); Glucose 122 mg/dl (70-99); Lipase 33 U/L (23-300); Magnesium 2.7 mg/dl (1.6-2.3); Potassium 4.7 mmol/L (3.5-5.1); Sodium 139 mmol/L (135-145); eGFR > 60.00
[2024-05-24 18:22] LABS: Troponin I < 0.012 ng/ml
[2024-05-24 18:51] LABS: TSH Reflex To Free T4 0.51 uIU/ml (0.47-4.68)
[2024-05-24 23:50] VITALS: BP 153/107
[2024-05-25] MEDS: NSS 500 IV ×2 (00:29→06:37)
[2024-05-25] MEDS: DECADRON 20 MG IV (00:30)
[2024-05-25] MEDS: TORADOL 30 MG IV (00:30)
[2024-05-25] MEDS: BENADRYL 25 MG IV (00:30)
[2024-05-25] MEDS: ZOFRAN 4 MG IV (00:31)
[2024-05-25] MEDS: OFIRMEV 100 IV (00:37)
[2024-05-25 01:41] VITALS: BP 144/94
--- NOTE | 2024-05-25 02:44 | HPS.HSE ---
Family Physician
-
Family Physician: Alma Patton DO
Chief Complaint
-
Headache
History of Present Illness
This is a 24-year-old with a history of Crohn's and migraine headaches who presents to the emergency department with 1 week of worsening headaches despite abortives use at home.
Patient reports he has been stable for several weeks now not started having a headache 1 week ago. Reports her pain is completely out of control and the highest its ever hide. He is associated with severe nausea and vomiting x 3. He is also
associated facial numbness and tremors. He states he has had similar episodes of headache before but none this severe. He felt like he had palpitations as well. He has been unable to sleep in bed due to the headaches. He last uses sumatriptan
and intranasal Zavzpret spray yesterday.
Reports his last exacerbation required hospitalization at [facility]. At that time he was treated with Toradol IV lidocaine. He is headache specialist recommended that he may require IV ketamine for recurrence of intractable headaches.
Here in the emergency department he was normotensive to hypertensive with a blood pressure of 140/90, pulse was tachycardic at 120, he was afebrile satting 96% on room air. ECG with sinus tachycardia, troponin negative. Head CT no acute
abnormalities. Chest x-ray is clear.
CBC is completely unremarkable. Electrolytes are mostly normal with a bicarb of 19. Received normal saline, Toradol, Benadryl, Decadron, Zofran and IV acetaminophen in the ED. Patient reports pain remains uncontrolled.
Medical History
Past Medical History
Past Medical History: Reports Other (Migraines)
Additional Past Medical History:
Crohns
Past Surgical History: Reports None
Social History
Tobacco: Non-smoker
Alcohol: None
Drug: None
Personal: Single
Living: With Family
Employment: Employed
Family History
Family History: Not pertinent
Allergies / Home Medications
Allergies reflects when Allergies were last updated in [facility].
Home Medications with original date entered in [facility]
Allergy/Medication List:
Allergies
Allergy/AdvReac Type Severity Reaction Status Date / Time
No Known Allergies Allergy Verified 05/24/24 17:37
Home Medications
Remicade 1 dose IV .Q7WEEK Crohn's 07/14/14
clonazepam 0.5 mg tablet 0.5 mg PO BID PRN anxiety 07/14/14
metoprolol succinate 50 mg tablet,extended release 24 hr 50 mg PO QHS Blood Pressure 08/08/22
omeprazole 40 mg capsule,delayed release 40 mg PO QHS GERD 08/08/22
venlafaxine 150 mg capsule,extended release 24 hr (Effexor XR) 187.5 mg PO HS Mental Health/Anxiety 08/08/22
lamotrigine 25 mg tablet,extended release 24 hr 150 mg PO QHS migraine 07/22/23
clobetasol 0.05 % topical foam 1 applic topical PRN PRN skin issue 07/24/23
dihydroergotamine (Trudhesa) 4 mg intranasal DAILYPRN PRN Migraines 07/24/23
eptinezumab-jjmr 100 mg/mL intravenous solution (Vyepti) 100 mg IV [id number] migraines 07/24/23
mometasone 0.1 % topical cream 1 applic topical PRN PRN Skin 07/24/23
onabotulinumtoxinA 100 unit solution for injection (Botox) 25 unit IM Q12W mirgaine 07/24/23
polyethylene glycol 3350 17 gram oral powder packet (HealthyLax) 17 g PO DAILY PRN Constipation #30 ea 07/24/23
ubrogepant 100 mg tablet (Ubrelvy) 100 mg PO DAILYPRN PRN Migraines 07/24/23
zavegepant 10 mg/actuation nasal spray (Zavzpret) 1 spray intranasal PRN PRN Migraine 07/24/23
zolmitriptan 5 mg nasal spray 1 spray intranasal PRN PRN Migraine 07/24/23
amlodipine 2.5 mg tablet 2.5 mg PO HS 05/25/24
mexiletine 150 mg capsule 150 mg PO BID 05/25/24
ramelteon 8 mg tablet 8 mg PO HS 05/25/24
Review of Systems
-
History Source: Patient
Constitutional: Reports No Symptoms
EENT: Reports No Symptoms
Respiratory: Reports No Symptoms
Cardiac: Reports Palpitations
: Reports No Symptoms
Musculoskeletal: Reports No Symptoms
Skin: Reports No Symptoms
Neurological: Reports Headache and Numbness
Endocrine: Reports No Symptoms
Hematologic/Lymphatic: Reports No Symptoms
Psych: Reports No Symptoms
Physical Exam
Vital Signs
Vital Signs
Temp Pulse Resp BP Pulse Ox
98.7 F 120 20 144/94 96
05/24/24 17:32 05/24/24 17:32 05/24/24 17:32 05/25/24 01:41 05/25/24 01:45
Physical Exam
General: Well Developed, Well Nourished, Appears in Distress and Pain
HEENT: NormoCephalic, Anicteric, Moist mucous membranes and Atraumatic
Respiratory: Clear
Cardiac: S1/S2 and Tachycardia
Breast: Deferred by me
GI: Soft, Non Tender, Non Distended and Normal Bowel Sounds
Rectal: Deferred by Provider
Genito-urinary: Deferred by me
Musculoskeletal: No Clubbing, No Cyanosis and No Edema
Skin: Warm
Neuro: AO x 3 and Nonfocal/grossly intact
Hematologic/Lymphatic: No Lymphadenopathy
Psych: Calm
Laboratory Results
-
05/24/24 17:47
05/24/24 17:47
Laboratory Results
Total Bilirubin 1.0 mg/dl (0.2-1.3) 05/24/24 17:47
AST 53 U/L (17-59) 01/31/25 17:47
ALT 74 U/L (0-50) H 05/24/24 17:47
Alkaline Phosphatase 62 U/L (38-126) 05/24/24 17:47
Troponin I < 0.012 ng/ml 05/24/24 17:47
Lipase 33 U/L (23-300) 05/24/24 17:47
Data Reviewed
-
Diagnostic Radiology: Image Personally Visualized and interpreted and Report Reviewed by me
CT Scan: Report Reviewed by me
Medical Tests (Nuc Med, Echo, EKG etc): Image Personally Visualized and interpreted
Lab Data: Labs Reviewed by me
Old Records: Reviewed
Impression/Plan
-
IMPRESSION:
24 y.o with h/o migraines here with intractable migraine headaches. Recent MRI was normal. CT head here is normal. No trauma.
PLAN:
1. Migraine headaches
- admit to med/surg obs
- already failed abortives at home,
- CT head negative
- trial of IV prochloperazine. Decided against depakone given recent tremors.
- continue metoprolol and amlodipine
- continue venlafaxine
DVT PPX - SCDs
Code status - full code
[2024-05-25 03:18] VITALS: BP 143/80
[2024-05-25] MEDS: KLONOPIN 0.5 MG PO (03:25)
[2024-05-25] MEDS: NORVASC 2.5 MG PO (03:25)
[2024-05-25] MEDS: COMPAZINE 10 MG IV (03:25)
[2024-05-25] MEDS: TOPROL XL 50 MG PO (03:25)
[2024-05-25 04:38] VITALS: BP 134/83
[2024-05-25 04:55] VITALS: BP 138/90; BMI 35.6
[2024-05-25 07:08] VITALS: BP 127/86
--- NOTE | 2024-05-25 08:16 | CON.NEURO ---
Consultation
Order
Date of Consultation: 05/25/24
Requesting Provider: Ghassan Jimenez MD
Reason for Consult: Headache
Neurology Consultation Note.
HPI: This is a 24-year-old LH immunocompromised man who presented to [facility] on 05/24/2024 with headache.
According to the patient he developed gradual progressive biparietal retro-orbital throbbing headache reaching a severity of 15/10, accompanied by a sensation of 'head explosion, palpitations, and bilateral facial numbness, more pronounced on the
left side'. No reports of head trauma, fever, change in speech, language or motor deficits. He states that his headache is back to baseline.
Mr. Royal states that he recently had brain MRI for an evaluation of hand tremor.
The patient is under care of EDSON Cramer([facility]) and was diagnosed with chronic migraine with aura. His typical migraine pattern includes daily headaches at a baseline level of 4/10, occasionally spiking to
7-8/10. Triggers include chocolate, heavy sauces, and MSG. The patient experiences daily headaches upon waking, sleeping only 3-4 hours per night. Previous episodes have included numbness and ocular pain.
ER VS: 179/96, 120, afebrile
EKG: Sinus tachycardia, QTc Int : 433 ms
PDMP: Clonazepam 0.5 mg 15 tablets filled in on 05/09/2024, 03/13/2024, 02/14/2024.
Current prophylactic therapy: Vyepti, Mexiletine, Botox, Lidocaine gtt 2 time a year
Current reported abortive therapy: Zavzpret, Trudhesa, Zomig, Ubrelvy, Nurtec, Toradol IM
Labs: Protein�10.0 (6.3�8.2) neutrophil count�85.9%, normal sodium, glucose�122, ALT�74, normal TSH,
CT head wo contrast�no acute abnormalities
MAR: Toradol�30 mg, Benadryl 25 mg, dexamethasone�20 mg, Compazine�10 mg, IV Acetaminophen 1000 mg
PMH: Crohn's disease diagnosed and treated with Remicade since the age of 14, psoriasis, recurrent Wernicke's encephalopathy, refractory migraine with aura, MDD, FERNANDA(Laurie Burks PA-C, CAQ-Psych
), nephrolithiasis BMI 35.6, insomnia
PSH: Hydrocele repair
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
FH: Father�multiple sclerosis, mother�FERNANDA
All:NKDA
ROS: Constitutional: Negative. Negative for chills, fever and unexpected weight change.
HENT: Negative for ear pain, hearing loss, tinnitus and trouble swallowing.
Eyes: Negative. Negative for photophobia, pain and visual disturbance.
Respiratory: Negative for cough, choking and shortness of breath.
Cardiovascular: Negative for chest pain, palpitations and leg swelling.
Gastrointestinal: Negative for abdominal pain and vomiting.
Endocrine: Negative. Negative for cold intolerance.
Genitourinary: Negative for dysuria, flank pain and urgency.
Musculoskeletal: Positive for chronic neck stiffness.
Skin: Positive for chronic rash
Allergic/Immunologic: Negative. Negative for immunocompromised state.
Neurological: Positive for headache, transient bifacial numbness
Psychiatric/Behavioral: Positive for anxiety, panic attacks, insomnia
General: Well developed. In no acute distress.
Cardio: Regular rate and rhythm without murmur. Extremities are without cyanosis or edema.
Neuro:
Mental Status: Alert, oriented to person, place, and date. Normal attention and recall. Good fund of knowledge. Follows complex requests across the midline. Comprehension, naming, and repetition intact.
Cranial Nerves: OS 3.5 mm, reactive, OD 3 mm, reactive. Pupils are equally round and reactive to light. EOMs full. Visual dent full to confrontation. No ptosis. No nystagmus. V1-V3 intact to light touch and pinprick bilaterally, symmetric.
Face symmetric. Normal hearing AU. The palate elevated well. SCMs and traps 5/5. Tongue midline. No dysarthria.
Motor: Normal bulk and tone. No pronator or arm drift. Strength 5/5 throughout. No clonus.
Reflexes: 2+ throughout the upper extremities and knees. . Plantar responses flexor bilaterally.
Sensory: Normal vibration and JPS.
Coordination: No dysmetria or tremor.
Gait: deferred
Assessment and Plan:
I. Chronic migraine with aura, clinically improved
II. FERNANDA with panic attacks
III. Thiamine deficiency, history of recurrent Wernicke's encephalopathy
IV. Elevated blood pressure
-BP log/salt restriction, weight loss
-Avoid medications known to cause headache as a side effect
-Continue thiamine 600 mg once a day
-Consider CSF studies to rule out IIH and chronic infection (would defer the decision to patient's neurologist)
-Consider polysomnogram, CT of the head and neck
-Neuro-ophthalmology follow-up
-Outpatient neurology follow-up
-Continue Vyepti, Mexiletine, Botox, Lidocaine gtt as prophylactic therapy and Zavzpret, Trudhesa, Zomig, Ubrelvy, Nurtec, Toradol IM supportive therapy
-Please recall neurology service with any questions or concerns
I personally reviewed all radiology and labs along with past medical records pertinent to current medical problems. Total time spent in patient care is 60 minutes.
Thank you for allowing us to participate in the care of this patient. Please do not hesitate to contact us with any questions or concerns.
Subjective/Objective
Subjective Data
Date of Service: May 25, 2024
Objective Data
Vital Signs
Temp Pulse Resp BP Pulse Ox
36.7 C 87 15 127/86 96
05/25/24 07:08 05/25/24 07:08 05/25/24 07:08 05/25/24 07:08 05/25/24 07:08
Lab Results
05/24/24 17:47
05/24/24 17:47
Sodium 139 mmol/L (135-145) 05/24/24 17:47
Potassium 4.7 mmol/L (3.5-5.1) 05/24/24 17:47
BUN 11 mg/dl (9-20) 05/24/24 17:47
Glucose 122 mg/dl (70-99) H 05/24/24 17:47
Calcium 10.0 mg/dl (8.4-10.2) 05/24/24 17:47
Patient Allergies
No Known Allergies Allergy (Verified 05/24/24 17:37)
Medications
-
Active Medications
Generic Name Dose Route Start Last Admin
Trade Name Freq PRN Reason Stop Dose Admin
Acetaminophen 650 mg 05/25/24 03:31
Acetaminophen 325 Mg Tablet PO 06/22/24 03:30
Q4HPRN PRN
mild pain/GAITAN/temp> 100.4F
Amlodipine Besylate 2.5 mg 05/25/24 22:00
Amlodipine 2.5 Mg Tablet PO 06/22/24 21:59
HS LAURA
Clonazepam 0.5 mg 05/25/24 03:31
Clonazepam 0.5 Mg Tablet PO 06/22/24 03:30
BIDPRN PRN
anxiety
Sodium Chloride 500 mls @ 30 mls/hr 05/25/24 05:59 05/25/24 06:37
Nss IV 05/25/24 22:38 500 mls
BOLUS ONE Administration
Ketorolac Tromethamine 10 mg 05/25/24 06:30
Ketorolac 15 Mg/Ml Injection IV 05/30/24 06:29
Q6HPRN PRN
moderate pain
Lamotrigine 150 mg 05/25/24 22:00
Lamotrigine 100 Mg Tablet PO 06/22/24 21:59
HS LAURA
Metoprolol Succinate 50 mg 05/25/24 22:00
Metoprolol 50 Mg Extended Release Tablet PO 06/22/24 21:59
HS LAURA
Mexiletine HCl 150 mg 05/25/24 08:00
Mexiletine 150 Mg Capsule PO 06/22/24 07:59
BID LAURA
Ramelteon 8 Mg 0 mg 05/25/24 22:00
Tablet Hs--Pt's Own PO 06/22/24 21:59
HS LAURA
Pantoprazole Sodium 40 mg 05/25/24 22:00
Pantoprazole 40 Mg Delayed Release Tablet PO 06/22/24 21:59
HS LAURA
Prochlorperazine Edisylate 10 mg 05/25/24 09:30
Prochlorperazine 10 Mg/2 Ml Vial IV 06/22/24 09:29
Q6HPRN PRN
headache
Sodium Chloride 0 flush 05/25/24 04:00
Sodium Chloride 0.9% (Flush) Syringe IV 06/22/24 03:59
PER PROTOCOL LAURA
Venlafaxine HCl 150 mg 05/25/24 22:00
Venlafaxine 150 Mg Extended Release Capsule PO 06/22/24 21:59
HS LAURA
Venlafaxine HCl 37.5 mg 05/25/24 22:00
Venlafaxine 37.5 Mg Extended Release Capsule PO 06/22/24 21:59
HS LAURA
Home Medications
�Medication �Instructions �Recorded
Remicade 1 dose IV .Q7WEEK Crohn's 07/14/14
clonazepam 0.5 mg tablet 0.5 mg PO BID PRN anxiety 07/14/14
metoprolol succinate 50 mg 50 mg PO QHS Blood Pressure 08/08/22
tablet,extended release 24 hr
omeprazole 40 mg capsule,delayed 40 mg PO QHS GERD 08/08/22
release
venlafaxine 150 mg 187.5 mg PO HS Mental 08/08/22
capsule,extended release 24 hr Health/Anxiety
(Effexor XR)
lamotrigine 25 mg tablet,extended 150 mg PO QHS migraine 07/22/23
release 24 hr
clobetasol 0.05 % topical foam 1 applic topical PRN PRN skin issue 07/24/23
dihydroergotamine (Trudhesa) 4 mg intranasal DAILYPRN PRN 07/24/23
Migraines
eptinezumab-jjmr 100 mg/mL 100 mg IV [id number] migraines 07/24/23
intravenous solution (Vyepti)
mometasone 0.1 % topical cream 1 applic topical PRN PRN Skin 07/24/23
onabotulinumtoxinA 100 unit 25 unit IM Q12W mirgaine 07/24/23
solution for injection (Botox)
polyethylene glycol 3350 17 gram 17 g PO DAILY PRN Constipation #30 07/24/23
oral powder packet (HealthyLax) ea
ubrogepant 100 mg tablet (Ubrelvy) 100 mg PO DAILYPRN PRN Migraines 07/24/23
zavegepant 10 mg/actuation nasal 1 spray intranasal PRN PRN Migraine 07/24/23
spray (Zavzpret)
zolmitriptan 5 mg nasal spray 1 spray intranasal PRN PRN Migraine 07/24/23
amlodipine 2.5 mg tablet 2.5 mg PO HS 05/25/24
mexiletine 150 mg capsule 150 mg PO BID 05/25/24
ramelteon 8 mg tablet 8 mg PO HS 05/25/24
Vital Signs and Labs
-
Vital Signs and Labs:
Vital Signs
Temp Pulse Resp BP Pulse Ox
36.7 C 87 15 127/86 96
05/25/24 07:08 05/25/24 07:08 05/25/24 07:08 05/25/24 07:08 05/25/24 07:08
Lab Results
05/24/24 17:47
05/24/24 17:47
Sodium 139 mmol/L (135-145) 05/24/24 17:47
Potassium 4.7 mmol/L (3.5-5.1) 05/24/24 17:47
BUN 11 mg/dl (9-20) 05/24/24 17:47
Glucose 122 mg/dl (70-99) H 05/24/24 17:47
Calcium 10.0 mg/dl (8.4-10.2) 05/24/24 17:47
Medications
-
Medications:
Generic Name Dose Route Start Last Admin
Trade Name Freq PRN Reason Stop Dose Admin
Acetaminophen 650 mg 05/25/24 03:31
Acetaminophen 325 Mg Tablet PO 06/22/24 03:30
Q4HPRN PRN
mild pain/GAITAN/temp> 100.4F
Amlodipine Besylate 2.5 mg 05/25/24 22:00
Amlodipine 2.5 Mg Tablet PO 06/22/24 21:59
HS LAURA
Clonazepam 0.5 mg 05/25/24 03:31
Clonazepam 0.5 Mg Tablet PO 06/22/24 03:30
BIDPRN PRN
anxiety
Sodium Chloride 500 mls @ 30 mls/hr 05/25/24 05:59 05/25/24 06:37
Nss IV 05/25/24 22:38 500 mls
BOLUS ONE Administration
Ketorolac Tromethamine 10 mg 05/25/24 06:30
Ketorolac 15 Mg/Ml Injection IV 05/30/24 06:29
Q6HPRN PRN
moderate pain
Lamotrigine 150 mg 05/25/24 22:00
Lamotrigine 100 Mg Tablet PO 06/22/24 21:59
HS LAURA
Metoprolol Succinate 50 mg 05/25/24 22:00
Metoprolol 50 Mg Extended Release Tablet PO 06/22/24 21:59
HS LAURA
Mexiletine HCl 150 mg 05/25/24 08:00
Mexiletine 150 Mg Capsule PO 06/22/24 07:59
BID LAURA
Ramelteon 8 Mg 0 mg 05/25/24 22:00
Tablet Hs--Pt's Own PO 06/22/24 21:59
HS LAURA
Pantoprazole Sodium 40 mg 05/25/24 22:00
Pantoprazole 40 Mg Delayed Release Tablet PO 06/22/24 21:59
HS LAURA
Prochlorperazine Edisylate 10 mg 05/25/24 09:30
Prochlorperazine 10 Mg/2 Ml Vial IV 06/22/24 09:29
Q6HPRN PRN
headache
Sodium Chloride 0 flush 05/25/24 04:00
Sodium Chloride 0.9% (Flush) Syringe IV 06/22/24 03:59
PER PROTOCOL LAURA
Venlafaxine HCl 150 mg 05/25/24 22:00
Venlafaxine 150 Mg Extended Release Capsule PO 06/22/24 21:59
HS LAURA
Venlafaxine HCl 37.5 mg 05/25/24 22:00
Venlafaxine 37.5 Mg Extended Release Capsule PO 06/22/24 21:59
HS LAURA
Home Medications
-
Home Medications
Remicade 1 dose IV .Q7WEEK Crohn's 07/14/14
clonazepam 0.5 mg tablet 0.5 mg PO BID PRN anxiety 07/14/14
metoprolol succinate 50 mg tablet,extended release 24 hr 50 mg PO QHS Blood Pressure 08/08/22
omeprazole 40 mg capsule,delayed release 40 mg PO QHS GERD 08/08/22
venlafaxine 150 mg capsule,extended release 24 hr (Effexor XR) 187.5 mg PO HS Mental Health/Anxiety 08/08/22
lamotrigine 25 mg tablet,extended release 24 hr 150 mg PO QHS migraine 07/22/23
clobetasol 0.05 % topical foam 1 applic topical PRN PRN skin issue 07/24/23
dihydroergotamine (Trudhesa) 4 mg intranasal DAILYPRN PRN Migraines 07/24/23
eptinezumab-jjmr 100 mg/mL intravenous solution (Vyepti) 100 mg IV [id number] migraines 07/24/23
mometasone 0.1 % topical cream 1 applic topical PRN PRN Skin 07/24/23
onabotulinumtoxinA 100 unit solution for injection (Botox) 25 unit IM Q12W mirgaine 07/24/23
polyethylene glycol 3350 17 gram oral powder packet (HealthyLax) 17 g PO DAILY PRN Constipation #30 ea 07/24/23
ubrogepant 100 mg tablet (Ubrelvy) 100 mg PO DAILYPRN PRN Migraines 07/24/23
zavegepant 10 mg/actuation nasal spray (Zavzpret) 1 spray intranasal PRN PRN Migraine 07/24/23
zolmitriptan 5 mg nasal spray 1 spray intranasal PRN PRN Migraine 07/24/23
amlodipine 2.5 mg tablet 2.5 mg PO HS 05/25/24
mexiletine 150 mg capsule 150 mg PO BID 05/25/24
ramelteon 8 mg tablet 8 mg PO HS 05/25/24
[2024-05-25] MEDS: MEXITIL 150 MG PO (09:10)
--- NOTE | 2024-05-25 09:21 | W.PN.HOSP.TC ---
Today's Communication/Plan
-
Assessment / Plan
Assessment / Plan
NAD
Scleral Anicteric
MMM
No JVD
CTABL
RRR, S1/S2
Soft, NT, ND, BS+
Warm, Dry
AAOx3
Calm
Intractable migraine
Continue as needed Toradol
Continue Compazine
Will have neurology evaluate
Will need continued follow-up at migraine clinic with [facility]
Unable to provide advanced therapies as he receives usually at [facility] such as lidocaine infusions
As migraine has improved likely able to discharge later today
Would appreciate neurology's input prior to discharge
Anticipated Discharge: Within 24 hours
Subjective/Interval History
-
Date of Service: May 25, 2024
Seen and examined. Migraine has improved however still asking for Toradol
States that he follows with [facility], has required PICC line and lidocaine infusion, likely will require ketamine infusions in the future however scared
States he gets auras currently does not have one. Does not have nausea.
States that he is scared to be discharged because if the migraine comes back, he is on multiple different types of abortive therapies
Objective Data
-
Vital Signs:
Vital Signs
Temp Pulse Resp BP Pulse Ox
98.0 F 87 15 127/86 96
05/25/24 07:08 05/25/24 07:08 05/25/24 07:08 05/25/24 07:08 05/25/24 07:08
I&O
05/24/24 05/25/24 05/26/24
06:59 06:59 06:59
Intake Total 480 / 480
Balance 480 / 480
[2024-05-25 09:35] LABS: C-Reactive Protein < 5.00 mg/L (0.0-10.00)
[2024-05-25 09:36] LABS: Creatine Phosphokinase 117 U/L (55-170); Magnesium 2.6 mg/dl (1.6-2.3)
[2024-05-25] MEDS: TORADOL 10 MG IV (09:49)
[2024-05-25 10:07] LABS: Erythrocyte Sed Rate 10 mm/hour (0-20)
--- NOTE | 2024-05-25 12:45 | W.DCSUMMARY ---
Discharge Summary
Discharge Data
Date of Admission: 05/25/24
Date of Discharge: 05/25/24
-
Pending Results: No
Hospital Course
24 M hx of migraines and crohns
Presented with intractable migraine, improved with normal saline, Toradol, Benadryl, Decadron, Zofran and IV acetaminophen in the ED. evaled by neuro, no further work up recommened inpatient. MRI cancelled. Outpatient follow up with migraine clinic,
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
Discharge Plan
-
Patient Disposition: Home (Routine Discharge)
Discharge Diagnosis/Procedures: Intractable Migraine
Condition: Good
Diet: As tolerated
Activity: As tolerated
Referrals:
Alma Patton, [Family Provider] - in less than 1 week
Prescriptions:
Continued
clonazepam 0.5 mg Tablet
0.5 mg PO BID PRN (Reason: anxiety)
Patient Comments:
08/08/2022: last filled 07/08/22, 30 tabs for 30 days from [id number]
Remicade
1 dose IV .Q7WEEK
metoprolol succinate 50 mg Tablet Extended Release 24 Hr
50 mg PO QHS
venlafaxine [Effexor XR] 150 mg Capsule,Extended Release 24hr
187.5 mg PO HS
omeprazole 40 mg Capsule,Delayed Release(Dr/Ec)
40 mg PO QHS
lamotrigine 25 mg Tablet Extended Release 24hr
150 mg PO QHS
Trudhesa 0.725 mg/pump act. (4 mg/mL) spray,non-aerosol
4 mg INTRANASAL DAILYPRN PRN (Reason: Migraines)
clobetasol 0.05 % foam
1 applic TOPICAL PRN PRN (Reason: skin issue)
mometasone 0.1 % cream
1 applic TOPICAL PRN PRN (Reason: Skin )
zolmitriptan 5 mg spray,non-aerosol
1 spray INTRANASAL PRN PRN (Reason: Migraine)
Ubrelvy 100 mg tablet
100 mg PO DAILYPRN PRN (Reason: Migraines)
Zavzpret 10 mg/actuation spray,non-aerosol
1 spray INTRANASAL PRN PRN (Reason: Migraine)
Vyepti 100 mg/mL Solution
100 mg IV [id number]
Botox 100 unit Recon Soln
25 unit IM Q12W
Rx Instructions:
Patient gets botox injections every 12 weeks
mexiletine 150 mg Capsule
150 mg PO BID
ramelteon 8 mg Tablet
8 mg PO HS
amlodipine 2.5 mg Tablet
2.5 mg PO HS
Discontinued
polyethylene glycol 3350 [HealthyLax] 17 gram Powder In Packet
17 g PO DAILY PRN (Reason: Constipation) Qty: 30 0RF
Discharge Orders:
Discharge Patient (As Directed); Ordered 05/25/24
Ordered By: Graeme Gupta
Discharge Date and Time
Print Language: SLOVENIAN
--- NOTE | 2024-05-25 12:48 | CM ---
Spoke with pt at bedside. He lives in a 2 story home with his mother, step-father and brother.
Working FT, drives, independent.
H/O Chron's Disease - receives home infusions, followed by [facility]
DME in home - includes supplies for home infusion IV pole, pump
HH - active with [facility]
PCP - Dr Osvaldo Diaz
Pharm - [facility]
Has ride home when d/c'ed
PCP - Dr Osvaldo Diaz
Pharm - [facility]
Plan - anticipate home to previous setting with no needs
[2024-05-25 13:03] VITALS: BP 143/92
[2024-05-28 11:35] LABS: Lyme Antibody Screen, EIA Negative (Negative)
== END 2024-05-25 15:41 | disposition home or self-care (01) ==
LOC: 4 EAST ACU 03:24
PROVIDERS: Physician Assistant; ADMITTING PHYSICIAN Internal Medicine; ATTENDING PHYSICIAN Hospitalist; CONSULT PHYSICIAN Psychiatry & Neurology Neurology; EMERGENCY PHYSICIAN Student in an Organized Health Care Education/Training Program; FAMILY PHYSICIAN Family Medicine
DX: G43.E19 Chronic migraine with aura, intractable, without status migrainosus (principal); K92.0 Hematemesis; R07.89 Other chest pain; R00.0 Tachycardia, unspecified; R20.0 Anesthesia of skin; R25.1 Tremor, unspecified; R19.7 Diarrhea, unspecified; K50.90 Crohn's disease, unspecified, without complications; I10 Essential (primary) hypertension; L40.9 Psoriasis, unspecified; G47.00 Insomnia, unspecified; F41.0 Panic disorder [episodic paroxysmal anxiety]; R73.9 Hyperglycemia, unspecified; E51.2 Wernicke's encephalopathy; R00.2 Palpitations; D84.821 Immunodeficiency due to drugs; F41.1 Generalized anxiety disorder; Z87.442 Personal history of urinary calculi; Z79.69 Long term (current) use of other immunomodulators and immunosuppressants
CPT/HCPCS: 70450; 71046; 80053; 82550; 83690; 83735; 84443; 84484; 85025; 85652; 86140; 86618; 93005; 96361; 96374; 96375; 99285; G0378

== ENCOUNTER 2025-02-13 10:11 | Emergency (ER) | payer BC, SELFPAY ==
[2025-02-13 10:16] VITALS: BP 138/96
--- NOTE | 2025-02-13 10:39 | ED.GENMED ---
History of Present Illness
General
Chief Complaint: Abdominal Symptoms
Time Seen by Provider: 02/13/25 10:25
History of Present Illness
History of Present Illness:
24-year-old male with history of Crohn's presents to the emergency department for evaluation of right-sided abdominal pain has been ongoing for the past 4 days associated with loose bowel movements. He also reports urinary urgency for the past
week. Pain radiates from the right lower belly to the right flank, rated 5 out of 10 in severity. No fevers or chills, no nausea or vomiting. Denies any hematochezia. Remicade infusions for his Crohn's and states that his management has been
adequate with no flareups recently. No prior abdominal surgeries
Past History
Past History
ED Past Medical History: HTN and Other (Migraines, Crohn's, Wernickie's Encephalopathy. Psoriasis, Tremors)
ED Past Surgical History: Urological (Hydrocele surgery)
Social History
Tobacco: Non-smoker
Alcohol: None
Drug: None
Personal: Single
Living: with family
Review of Systems
Review of Systems
Allergies reviewed?: Yes
All Other Systems: ROS reviewed and negative except as documented in HPI and ROS
Phy Exam
Physical Exam
Physical Exam:
GEN: Well appearing, NAD, WDWN
HEENT: Oral mucosa moist, no scleral icterus
Cardiac: Regular rate
Lung: No respiratory distress, no tachypnea
Abdomen: Soft, mild epigastric tenderness, no other focal tenderness elicited, no masses
MSK: No gross deformity or injuries
Skin: Good color, no pallor or jaundice, no rashes
Neuro: AO x3, moves all extremities freely
Psych: Calm, cooperative
Course
Orders/Labs/Results
Orders:
Orders
02/13/25 11:00
Complete Blood Count/With Diff Urgent
Urinalysis Reflex To Culture Urgent
Date Specimen was Collected: 02/13/25
Time Specimen was Collected: 10:51
Urine Microscopic Reflex Cult Urgent
02/13/25 11:01
Basic Metabolic Panel Urgent
CRP [C-Reactive Protein] Urgent
Lipase Urgent
02/13/25 12:08
CT Abd/Pel (IV only)-DH only Urgent
Comment:
Reason For Exam: R flank pain
02/13/25 14:22
Stool Culture Urgent
JASON Source: Feces/Stool
Specimen Description:
Date Specimen was Collected: 02/13/25
Time Specimen was Collected: 14:27
Abnormal Lab Results
02/13/25 02/13/25
11:00 11:01
MCV 79.8 L fL
(80.0-94.0)
MCH 25.6 L pg
(27.0-31.0)
MCHC 32.0 L g/dL
(33.0-37.0)
Glucose 101 H mg/dl
(70-99)
Urine Bacteria (Reflex) Few A
(Negative)
Urine Albumin (Reflex) 2+ A
(Neg - Trace)
02/13/25 11:00
02/13/25 11:01
Vital Signs
Initial and Last Documented VS:
Initial Vital Signs
Temp Pulse Resp BP Pulse Ox
98.0 F 91 20 138/96 98
02/13/25 10:16 02/13/25 10:16 02/13/25 10:16 02/13/25 10:16 02/13/25 10:16
Last Documented Vital Signs
Temp Pulse Resp BP Pulse Ox
98.0 F 91 20 138/97 96
02/13/25 10:16 02/13/25 10:16 02/13/25 10:16 02/13/25 12:00 02/13/25 12:30
MDM/Problems Addressed
MDM/Problems Addressed:
CT reveals mild acute colitis, given negative inflammatory markers this is unlikely Crohn's colitis. I will prescribe antibiotics however stool specimen for culture is sent at time of discharge, encouraged to follow-up with his GI specialist as an
outpatient given that he is stable for antibiotics until further discussion with his specialist
*Pulse Oximetry
SaO2: 98
Oxygen Mode of Delivery: Room air
Patient hypoxic: no
*Critical Care Note
Total Time (30-74mins, 75-104mins- exclusive of procedures): Not Applicable
ED Attending Note
-
Portions of this chart may have been created with voice recognition software.� Occasional wrong word or��sound alike� substitutions may have occurred due to the inherent limitations of voice recognition software.
Discharge Plan
Departure
Patient Disposition: Home (Routine Discharge)
Date of Disposition: 02/13/25
Time of Disposition: 14:09
Patient with high blood pressure during this ER visit?: No
Discharge Problem:
Colitis
Instructions: Colitis (DC)
Prescriptions:
New
amoxicillin-pot clavulanate 875-125 mg tablet
1 tab PO BID Qty: 20 0RF
No Action
clonazepam 0.5 mg Tablet
0.5 mg PO BID PRN (Reason: anxiety)
Patient Comments:
08/08/2022: last filled 07/08/22, 30 tabs for 30 days from [id number]
Remicade
1 dose IV .Q7WEEK
metoprolol succinate 50 mg Tablet Extended Release 24 Hr
50 mg PO QHS
venlafaxine [Effexor XR] 150 mg Capsule,Extended Release 24hr
187.5 mg PO HS
omeprazole 40 mg Capsule,Delayed Release(Dr/Ec)
40 mg PO QHS
lamotrigine 25 mg Tablet Extended Release 24hr
150 mg PO QHS
Trudhesa 0.725 mg/pump act. (4 mg/mL) spray,non-aerosol
4 mg INTRANASAL DAILYPRN PRN (Reason: Migraines)
clobetasol 0.05 % foam
1 applic TOPICAL PRN PRN (Reason: skin issue)
mometasone 0.1 % cream
1 applic TOPICAL PRN PRN (Reason: Skin )
zolmitriptan 5 mg spray,non-aerosol
1 spray INTRANASAL PRN PRN (Reason: Migraine)
Ubrelvy 100 mg tablet
100 mg PO DAILYPRN PRN (Reason: Migraines)
Zavzpret 10 mg/actuation spray,non-aerosol
1 spray INTRANASAL PRN PRN (Reason: Migraine)
Vyepti 100 mg/mL Solution
100 mg IV [id number]
Botox 100 unit Recon Soln
25 unit IM Q12W
Rx Instructions:
Patient gets botox injections every 12 weeks
mexiletine 150 mg Capsule
150 mg PO BID
ramelteon 8 mg Tablet
8 mg PO HS
amlodipine 2.5 mg Tablet
2.5 mg PO HS
Referrals:
Alma Patton DO [Family Provider]
Activity Restrictions/Additional Instructions:
Please obtain stool specimens prior to starting antibiotics
Contact your GI doc at [place] tomorrow for next steps
Interventions
Interventions:
*Risk Screen - Suicide Last Done: 02/13/25 10:17
*Neglect/Abuse Screening Last Done: 02/13/25 10:17
*ED- Fall Risk Assessment Last Done: 02/13/25 11:14
*ED COVID-19 Vaccine History Last Done: 02/13/25 11:14
*ED Influenza Vaccine History Last Done: 02/13/25 11:14
OX-Eviynq-Pssmtgxybz Assessment Last Done: 02/13/25 11:14
Discharge Date and Time
Print Language: FAROESE
[2025-02-13 11:01] VITALS: BP 130/93
[2025-02-13 11:13] VITALS: BMI 35.5
[2025-02-13 11:14] LABS: Urine Character Clear (Clear)
[2025-02-13 11:18] LABS: Hematocrit 43.1 % (39.0-52.0); Hemoglobin 13.8 g/dL (13.0-18.0); Mean Corp Hgb Conc. 32.0 g/dL (33.0-37.0); Mean Corpuscular Volume 79.8 fL (80.0-94.0); Nucleated Red Blood Cells % 0 % (-); Platelet Count 340 10^3/uL (130-400); Red Cell Dist. Width 13.9 % (11.5-14.5)
[2025-02-13 11:36] LABS: C-Reactive Protein < 5.00 mg/L (0.0-10.00)
[2025-02-13 11:46] LABS: Blood Urea Nitrogen 17 mg/dl (9-20); Calcium 9.9 mg/dl (8.4-10.2); Carbon Dioxide 24 mmol/L (22-30); Chloride 102 mmol/L (98-107); Estimated Creatinine Clearance > 125 ml/min; Glucose 101 mg/dl (70-99); Lipase 31 U/L (23-300); Sodium 136 mmol/L (135-145); eGFR > 60.00
[2025-02-13 12:00] VITALS: BP 138/97
[2025-02-13 12:05] LABS: Urine Urothelial Cell 0-2 /LPF (FEW)
[2025-02-13 12:06] LABS: Urine Red Blood Cell 0-2 /HPF (0-2); Urine White Cell 0-2 /HPF (0-5)
[2025-02-13 13:00] VITALS: BP 119/80
[2025-02-13 14:00] VITALS: BP 129/86
== END 2025-02-13 14:35 | disposition home or self-care (01) ==
LOC: EMR 10:11
PROVIDERS: Physician Assistant; EMERGENCY PHYSICIAN Emergency Medicine; FAMILY PHYSICIAN Family Medicine
DX: K52.9 Noninfective gastroenteritis and colitis, unspecified (principal); K50.90 Crohn's disease, unspecified, without complications; I10 Essential (primary) hypertension; G43.909 Migraine, unspecified, not intractable, without status migrainosus; L40.9 Psoriasis, unspecified
CPT/HCPCS: 99284; 74177; 80048; 81003; 81015; 83690; 85025; 86140; 87045; 87046; 87427; Q9967